=== PATIENT | female | born 1965 | race Caucasian/White ===

== ENCOUNTER 2019-09-16 23:14 | Inpatient (IN) | payer OTHER ==
--- OUTSIDE RECORDS SUMMARY | 2019-09-16 23:19 | XMS REPORT | Continuity of Care Document ---
:1965 Author Organization [facility] [facility] Care Team Providers Name Role Phone [facility] Unavailable Un available Problems Problem Status Onset Classification Date Comments Sourc e Date Reported Nondisplaced 06/11/19 09/13/2017 OPI D bicondylar [address] fracture of right tibia, subsequent encounter for closed fracture with routine healing S82.141A - Active 01/26/20 [facility] DISPLACED [address] BICONDYLAR FRACTURE Effusion, right 09/13/2017 [facility] [place] Medications No Data Provided for This Section Allergies, Adverse Reactions, Alerts No Known Medication Allergies Immunizations No Data Provided for This Section Results No Data Provided for This Section Pathology Reports No Data Provided for This Section Diagnostic Reports Report Value Date Source Knee wo contrast MRI EXAMINATION: MRI of the right knee with out contrast. 06/07/2017 [facility] [place] HISTORY: - closed non displ aced bicondylar fx. of right tibia with routine healing; AGE: 51 years GENDER: Female COMPARISON: CT right knee 01/25/2017 TECHNIQUE: Multiplanar, mult isequence magnetic resonance imaging of the right knee is performed with an extremity coil without contrast. FINDINGS: Menisci: Medial: There is moderate fr ee edge blunting of the body and posterior horn of the medial meniscus Lateral: The anterior horn, body, and posterior horn are intact. Ligaments: The anterior cruc iate ligament and posterior cruciate ligament are intact. The medial collateral ligament and lateral collateral ligament complex are intact. Extensor mechanism: The extensor mechanism is in tact. Muscles: There is normal sig nal intensity and muscle bulk of the musculature at the knee. Cartilage: There is moderate reactive marrow change in the lateral patellofemoral compartment with lateral patellar tilt. Mild osseous reformation the medial tibiofemoral and patellofemoral compartments . The patellofemoral articul ar cartilage demonstrates grade 2/3 chondromalacia with oblique full-thickness 5 x 8 mm chondral fracture in the lateral patellar ridge extending to the patellar apex.. The m edial tibiofemoral articular cartilage demonstrates grade 3 chondromalacia.. The lateral tibiofemoral articular cartilage demonstrates mild chondral surface fraying in the medial aspect of the lateral tibial plateau. Bone: There is stable 3 mm c entral depression of the lateral tibial plateau consistent with sequela from healed lateral tibial plateau fracture previously noted anterior tibial cortex fractures also hea led. Mild intraosseous cyst formation is noted in the medial margin of this lateral tibial plateau fracture at the site of cortical depression. Moderate red marrow reconversion. Soft tissues: There is a small knee joint effusi on. Moderate Juarez's cyst IMPRESSION: 1. Interval healing of later al tibial plateau fracture with stable 3 mm central depression of the lateral tibial plateau. 2. Grade 2/3 chondromalacia of the lateral patellar facet with superimposed oblique full-thickness 8 mm chondral fissure in the lateral patellar ridge and patellar apex. 3. Grade III chondromalacia in the medial tibiofemoral compartment with degenerative free edge blunting of the body and posterior horn. 4. Small knee joint effusion with moderate Juarez 's cyst. Knee wo contrast 01/25/2017 [facility] w/3D CT Study: Right knee wo contrast w/3D CT Clinical Indication: S82.141 A Displaced bicondylar fracture of right tibia, initial encounter for closed fracture, f/u to xrays outside report attached - DLP: 993.10 mGy-cm Comparison: None TECHNIQUE: Multiple axial CT images of the right knee were acquired without the administration of intravenous contrast. Multiplanar and three-dimensional reformatted images were performed. DLP= 993.10 mGy-cm FINDINGS: There is an acute, mildly depressed fracture of the lateral tibial plateau with 3 mm depression at the articular surface. Associated large lipohemarthrosis of the knee is seen. Nondisplaced ve rtically oriented fracture c omponent extends into the anterior cortex of the lateral tibial plateau. Moderate-severe tricompartme ntal osteoarthrosis of the knee is noted with joint space narrowing and marginal osseous spurring. The quadriceps and patellar tendons are grossly intact. The anterior cruciate ligament and posterior cruciate ligament are grossly intact. Mild infrapatellar soft tiss ue swelling is seen. Punctate 2 mm and 3 mm radiopaque densities in the infrapatellar soft tissues are also noted, nonspecific. IMPRESSION: 1. Acute, mildly depressed l ateral tibial plateau fracture, compatible with Schatzker type III fracture. 2. Advanced tricompartmental osteoarthrosis of t he right knee. SL: [id number] Consultation Notes No Data Provided for This Section Discharge Summaries No Data Provided for This Section History and Physicals No Data Provided for This Section Vital Signs No Data Provided for This Section Encounters Location Location Encounter Encounter Reason Attending ADM HI Stat us Source Details Type Number For Provider Date Date Visit [facility] Outpt Diag [id number] [place] 01/25 01/26 [facility] Outpt Diag [id number] [place] 06/07 06/08 [facility] [place] Procedures No Data Provided for This Section Assessment and Plan No Data Provided for This Section Plan of Care No Data Provided for This Section Social History Social History Date Source No data available for this 06/08/2017 [facility] [place] section No data available for this 01/26/[address] [facility] section Family History No Data Provided for This Section Advance Directives No Data Provided for This Section Functional Status No Data Provided for This Section
--- OUTSIDE RECORDS SUMMARY | 2019-09-16 23:19 | XMS REPORT | Clinical Summary ---
:1965 Author Organization [facility] Address [address] [place] [address] Care Team Providers Name Role Phone Tonia Cobb [employer] SLEEV[employer] WORKERKimberlyC Primary Care Provider Allergies No Known Allergies Medications Medication Sig Dispensed Refills Start End Status Date Date carvedilol Take 25 mg by 0 Activ e (COREG) 25 MG mouth 2 (two) tablet times a day. lisinopril Take 1 tablet by 0 Ac tive (PRINIVIL,ZESTRIL mouth daily. ) 10 mg tablet sertraline Take 1 tablet by 0 Ac tive (ZOLOFT) 100 MG mouth daily. tablet atorvastatin Take 1 tablet by 0 Active (LIPITOR) 40 MG mouth daily. tablet MULTIVITAMIN ORAL Take 1 tablet by 0 Active mouth daily. estradiol Take 1 mg by mouth 0 A ctive (ESTRACE) 1 MG daily. tablet AJOVY 225 mg/1.5 INJECT ONE SYRINGE 2 Syringe Active mL SUBCUTANEOUSLY 9 syringeIndication EVERY 28 DAYS s: Intractable chronic migraine without aura and without status migrainosus meloxicam (MOBIC) Take 1 tablet (15 30 tablet 1 /2 Active 15 mg tablet mg total) by mouth 0 021 daily. meloxicam (MOBIC) TAKE 1 TABLET BY 90 tablet 1 11/03 Discontinued 15 mg tablet MOUTH ONCE DAILY 8 019 (Error) meloxicam-irritan Take 1 tablet by 0 01/18 Discontinued t,cntr irr #2 15 mouth daily. 019 mg kit fremanezumab-vfrm Inject 225 mg 1 Syringe 11 Discontinued (AJOVY) 225 under the skin 8 019 (Re order) mg/1.5 mL syringe every 28 days. syringeIndication s: Intractable chronic migraine without aura and without status migrainosus meloxicam (MOBIC) Take 1 tablet (15 30 tablet 1 10/24 0 Discontinued 15 mg tablet mg total) by mouth 9 019 (Reorder) daily. methocarbamol Take 1 tablet (750 30 tablet 0 Discontinued (ROBAXIN) 750 MG mg total) by mouth 9 019 tablet every 8 (eight) hours as needed for muscle spasms for up to 30 doses. meloxicam (MOBIC) TAKE 1 TABLET BY 30 tablet 1 01/03 Discontinued 15 mg tablet MOUTH ONCE DAILY 9 019 (Reorder) meloxicam (MOBIC) TAKE 1 TABLET BY 30 tablet 1 03/20 Discontinued 15 mg tablet MOUTH ONCE DAILY 9 019 (Reorder) enoxaparin Inject 0.4 mL (40 14 Syringe 0 (LOVENOX) 40 mg total) under 9 019 mg/0.4 mL syringe the skin daily for 14 days. promethazine Take 1 tablet (25 20 tablet 0 (PHENERGAN) 25 MG mg total) by mouth 9 019 tablet every 6 (six) hours as needed for nausea or vomiting for up to 30 days. To begin after surgery methocarbamol Take 1 tablet (750 120 tablet 0 (ROBAXIN-750) 750 mg total) by mouth 9 019 MG tablet 4 (four) times a day for 30 days. traMADol (ULTRAM) Take 1 tablet (50 50 tablet 0 03/27 3 50 mg mg total) by mouth 9 019 tabletIndications every 4 (four) : acute pain hours as needed for moderate pain for up to 61 days .Acute Pain. meloxicam (MOBIC) TAKE 1 TABLET BY 90 tablet 1 06/18 15 mg tablet MOUTH ONCE DAILY 9 020 traMADoL (ULTRAM) Take 1 tablet (50 30 tablet 0 08/25 50 mg mg total) by mouth 0 020 tabletIndications every 4 (four) : acute pain hours as needed for moderate pain for up to 10 days .acute pain. cephalexin Take 2 grams 1 hr 4 capsule E xpired (KEFLEX) 500 MG prior to dental 0 020 capsule appointment Hospital, Clinic, or Ordered Dose Route Frequency Start Date End D ate Status Other Facility Administered Medication methylPREDNISolone 40 mg IAtc once 11/22/2018 Discontinued acetate (DEPO-MEDROL) 9 injection 40 mgIndications: Primary osteoarthritis of right knee methylPREDNISolone 40 mg IAtc once 11/22/2018 Discontinued acetate (DEPO-MEDROL) 9 injection 40 mgIndications: Primary osteoarthritis of left knee Active Problems Problem Noted Date Knee osteoarthritis 02/01/2019 S/P total knee arthroplasty 02/01/2019 Essential hypertension, benign 02/01/2019 Hyperlipemia 02/01/2019 History of migraine 02/01/2019 Anxiety 02/01/2019 Primary osteoarthritis of left knee 12/27/2018 Overview: Added automatically from request for jameson okeefe [id number] Osteoarthritis of spine with radiculopathy, cervical r egion 03/30/2018 Intractable chronic migraine without aura and without status migrainosus 03/30/2018 Encounters Date Type Specialty Care Team Description 09/05/2019 Office Visit Orthopedic Julio Patel, Acute pain of left knee (Primary Dx); Surgery Status post lef t knee replacement 09/05/2019 Refill Orthopedic Conchita Teague MA Surgery 09/05/2019 Travel 08/29/2019 Travel 08/01/2019 Office Visit Orthopedic Julio Patel, Status post left knee replacement (Primary Dx); Surgery MD Primary osteoar thritis of left knee; Acute pain of l eft knee 08/01/2019 Travel 07/21/2019 Travel 06/26/2019 Office Visit Orthopedic Julio Patel, Status post left knee Surgery MD replacement (Pr imary Dx) 05/01/2019 Office Visit Orthopedic Darnell, Status post lef t knee Surgery VINAY Clay replacement (Primary Dx) 03/24/2019 Refill Neurology Marixa Callahan MD Intractable chronic migraine withou t aura and without sta tus migrainosus 03/20/2019 Refill Orthopedic Julio Patel, Surgery MD 03/16/2019 Office Visit Orthopedic Julio Patel, Primary ost eoarthritis of left knee (Primary Dx); Surgery MD Status post lef t knee replacement 02/15/2019 Office Visit Orthopedic Darnell, Status post lef t knee Surgery VINAY Clay replacement (Primary Dx) 02/03/2019 Orders Only Orthopedic Gopal Patrick PA 02/01/2019 Surgery General Surgery Julio Patel, Left Tot al Knee Arthroplasty 02/01/2019 Anesthesia Event General Surgery Addison Robin MD Cheema, Ivelisse, RODRÍGUEZ 02/01/2019 - Hospital Encounter General Internal Julio Patel P rimary 02/03/2019 Medicine osteoarthritis of left knee 01/30/2019 Orders Only Orthopedic Gopal Patrick PA 01/18/2019 Pre-Admit Testing Pre-Admission Julio Ptael, Pre-o p testing Appointment Testing (Primary Dx) 01/11/2019 Telephone Orthopedic Shannen Ross MA Surgery 01/03/2019 Refill Orthopedic Gopal Patrick PA 12/29/2018 Orders Only Orthopedic Hugo Hopkins Primary Surgery MAYA osteoarthritis of left knee (Prim vipul Dx) 12/27/2018 Transcribe Orders Orthopedic Julio Patel Primar y Surgery osteoarthritis of left knee (Prim vipul Dx) 12/23/2018 Hospital Encounter Radiology Julio Patel, Prima ry osteoarthritis of left knee 12/20/2018 Office Visit Orthopedic Julio Patel, Primary Surgery osteoarthritis of left knee (Prim vipul Dx) 12/20/2018 Orders Only Orthopedic Julio Patel, Primary Surgery osteoarthritis of left knee (Prim vipul Dx) 11/22/2018 Office Visit Orthopedic Julio Patel, Primary ost eoarthritis of right knee (Primary Dx); Surgery MD Primary osteoar thritis of left knee; Acute pain of l eft knee 11/02/2018 Refill Orthopedic Julio Patel, Surgery MD after 09/15/2018 Family History Medical History Relation Name Comments Diabetes Father Heart disease Father Hypertension Father Stroke Father Migraines Maternal Aunt No Known Problems Mother Relation Name Status Comments Father Maternal Aunt Mother Alive Social History Tobacco Use Types Packs/Day Years Used Date Never Smoker Smokeless Tobacco: Never Used Alcohol Use Drinks/Week oz/Week Comments Not Currently Alcohol Habits Answer Date Recorded How often do you have a drink containing alcohol? Never 03/30/2018 How many drinks containing alcohol do you have on a typical Not asked day when you are drinking? How often do you have six or more drinks on one occasion? No t asked Sex Assigned at Date Recorded Not on file Job Start Date Occupation Industry Not on file Not on file Not on file Travel History Travel Start Travel End No recent travel history available. COVID-19 Exposure Response Date Recorded In the last month, have you been in contact with No / Unsure 09/05/2019 10:31 AM CDT someone who was confirmed or suspected to have Coronavirus / COVID-19? Last Filed Vital Signs Vital Sign Reading Time Taken Comments Blood Pressure 114/63 02/03/2019 11:33 AM CDT Pulse 60 02/03/2019 11:33 AM CDT Temperature 36.9 C (98.4 F) 02/03/2019 11:33 AM CDT Respiratory Rate 18 02/03/2019 11:33 AM CDT Oxygen Saturation 97% 02/03/2019 11:33 AM CDT Inhaled Oxygen Concentration - - Weight 98.9 kg (218 lb) 01/18/2019 8:55 AM CDT Height 165.1 cm (5' 5") 02/01/2019 7:15 AM CDT Body Mass Index 36.28 01/18/2019 8:55 AM CDT Plan of Treatment Date Type Specialty Care Team Description 10/17/2019 [facility] [place] [address] [place], [place] [address] Health Maintenance Due Date Last Done Comments CERVICAL CANCER SCREENING 11/04/1988 BREAST CANCER SCREENING 11/04/2017 COLONOSCOPY SCREENING 11/04/2017 SHINGLES VACCINES (#1) 11/04/2017 INFLUENZA VACCINE 11/25/2019 Implants Implanted 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 Shelf Model / Identifier Expiration Serial / Date Lot Series A Pat Std 31 3 Peg - [id number] IMPLANT Left: [employer] 11/25/2023 [id number] / Implanted: 02/01/2019 at [facility] (Quantity not on file) DEVICES Knee / [id number] Angel Peters Ilok Fem-Lt 67.5 - [id number] IMPLANT Left: [employer] 08/01/2028 [id number] / Implanted: 02/01/2019 at [facility] (Quantity not on file) DEVICES Knee / [id number] Biomet Cc Cruciate Tray 71mm - [id number] IMPLANT Left: [employer] 09/24/2028 [id number] / Implanted: 02/01/2019 at [facility] (Quantity not on file) DEVICES Knee / [id number] E-Poly Mikeguard Cr Tib Brng 71/75 X 10 - [id number] [id number] IMPLANT Left: [employer] 03/21/2021 [id number] / Implanted: 02/01/2019 at [facility] (Quantity not on file) DEVICES Knee / [id number] Total Knee Arthrplsty Signature - [id number] Orthopedic Left: [employer] [id number] / Implanted: 02/01/2019 at [facility] (Quantity not on file) Trauma Knee / Implants [id number] Cement Bone Full Dose Simplex P Radiopaque - [id number] Surgical Bone Left: KELSI 11/23/2020 [id number] / Implanted: 02/01/2019 at [facility] (Quantity not on file) Ce ment Knee ORTHOPEDICS / HIPS-KNEES [id number] Cement Bone Full Dose Simplex P Radiopaque - [id number] Surgical Bone Left: KELSI 01/23/2021 [id number] / Implanted: 02/01/2019 at [facility] (Quantity not on file) Ce ment Knee ORTHOPEDICS / HIPS-KNEES [id number] Procedures Procedure Name Priority Date/Time Associated Diagnosis Comme nts XR KNEE 1 OR 2 VW LEFT Routine 09/05/2019 10:48 Acute pain of left Results for this AM CDT knee procedure are i n the results section. XR KNEE 1 OR 2 VW LEFT Routine 02/15/2019 2:12 Status post le ft knee Results for this PM CDT replacement procedure are i n the results section. HEMOGLOBIN & Routine 02/03/2019 3:54 Results for this HEMATOCRIT AM CDT procedure are i n the results section. ESTIMATED GFR Routine 02/02/2019 6:10 Results fo r this AM CDT procedure are i n the results section. HC COMPLETE BLD COUNT Routine 02/02/2019 6:10 Re sults for this W/AUTO DIFF AM CDT procedure are i n the results section. COMPREHENSIVE Routine 02/02/2019 6:10 Results fo r this METABOLIC PANEL AM CDT procedure ar e in the results section. SURGICAL PATHOLOGY Routine 02/01/2019 12:24 Resul ts for this REQUEST PM CDT procedure are i n the results section. URINALYSIS SCREEN AND Timed 02/01/2019 9:04 Primary Re sults for this MICROSCOPY, WITH AM CDT osteoarthritis of proced ure are in REFLEX TO CULTURE left knee the result s section. URINE CULTURE Timed 02/01/2019 9:04 Results fo r this AM CDT procedure are i n the results section. NE AN PERIPHERAL BLOCK Routine 02/01/2019 8:28 R esults for this PROCEDURE FOR PAIN AM CDT procedure are in the results section. NE AN PERIPHERAL BLOCK Routine 02/01/2019 8:27 R esults for this PROCEDURE FOR PAIN AM CDT procedure are in the results section. ANESTHESIA PERIPHERAL Routine 02/01/2019 8:27 Re sults for this BLOCK AM CDT procedure are i n the results section. POC GLUCOSE Routine 02/01/2019 7:37 Results for this AM CDT procedure are i n the results section. ESTIMATED GFR Routine 01/18/2019 9:26 Results fo r this AM CDT procedure are i n the results section. HEMOGLOBIN A1C Routine 01/18/2019 9:26 Pre-op testing Results for this AM CDT procedure are i n the results section. BASIC METABOLIC PANEL Routine 01/18/2019 9:26 Pre-op testing Results for this AM CDT procedure are i n the results section. HC COMPLETE BLD COUNT Routine 01/18/2019 9:26 Pre-op testing Results for this W/AUTO DIFF AM CDT procedure are i n the results section. ECG PRE/POST OP Routine 01/18/2019 9:24 Pre-op testing Result s for this AM CDT procedure are i n the results section. TYPE AND SCREEN Routine 01/18/2019 9:08 Pre-op testing Result s for this AM CDT procedure are i n the results section. MRI SIGNATURE KNEE Routine 12/23/2018 9:02 Primary Resul ts for this LEFT PM CDT osteoarthritis of procedure are in left knee the results section. XR KNEE 4+ VW LEFT Routine 11/22/2018 10:31 Acute pain of left Results for this AM CDT knee procedure are i n the results section. NE ARTHROCENTESIS Routine 11/22/2018 10:10 Primary Result s for this ASPIR&/INJ MAJOR AM CDT osteoarthritis of proced ure are in JT/BURSA W/O US right knee the results Primary section. osteoarthritis of left knee after 09/15/2018 Results XR Knee 1 Or 2 Vw Left (09/05/2019 10:48 AM CDT)Only the most recent of2 results within the time period is included. Specimen Narrative Performed At This result has an attachment that is no t available. 2 views (AP and lateral of the Left knee(s) show that the prosthesis is HM [facility] in good position with no signs of any problems. No s igns of loosening, infection, or dislocation. Performing Organization Address City/[facility]/Zipcode Phone Number [facility] [address] [place] [address] Hemoglobin & hematocrit (02/03/2019 3:54 AM CDT) Pathologist Sig nature HGB 10.5 (L) 12.0 - 16.0 g/dL [facility] HCT 33.7 (L) 37.0 - 47.0 % [facility] Specimen Blood Performing Organization Address City/State/Zipcode Phone Number [facility] DEPARTMENT OF PATHOLOGY [address] [facility] [address] AND GENOMIC MEDICINE [facility] [address] [facility] X [address] HOSPITAL Estimated GFR (02/02/2019 6:10 AM CDT)Only the most recent of2 resultswithin the time period is included. Estimated GFR >=90 mL/min/1.73 [facility] Comment: m2 [place] Catergory Units Interpretation HOS PITAL G1 >=90 Normal or high G2 60-89 Mildly decreased G3a 45-59 Mildly to moderately decreas ed G3b 30-44 Moderately to severely decre ased G4 15-29 Severely decreased G5 <15 Kidney failure The eGFR was calculated using the Chronic Kidney Disea se Epidemiology Collaboration (CKD-EPI) equation. Interpretation is based on recommendations of the National Kidney Foundation-Kidney Disease Outcomes Remington lity Initiative (NKF-KDOQI) published in 2014. Specimen Plasma specimen Performing Organization Address City/State/Zipcode Phone Number [facility] DEPARTMENT OF PATHOLOGY [id number] [place] [address] [id number] [place] [address] CBC with platelet and differential (02/02/2019 6:10 AM CDT)Only the most recent of2 resultswithin the time period is included. WBC 14.6 (H) 4.5 - 11.0 k/uL [facility] RBC 3.55 (L) 4.20 - 5.50 [facility] m/uL [facility] HGB 10.8 (L) 12.0 - 16.0 [facility] g/dL [facility] HCT 34.3 (L) 37.0 - 47.0 % [facility] MCV 96.6 82.0 - 100.[address] [facility] MCH 30.4 27.0 - 34.[address] [facility] MCHC 31.5 31.0 - 37.0 [facility] g/dL [facility] RDW - SD 46.1 37.0 - 55.[address] [facility] MPV 9.7 6.9 - 11.[address] [facility] Platelet count 266 150 - 400 K/uL [facility] Nucleated RBC 0.00 /[address] [facility] Neutrophils 76.3 (H) 39.0 - 69.0 % [facility] Lymphocytes 14.8 (L) 25.0 - 45.0 % [facility] Monocytes 8.3 0.0 - 10.0 % [facility] Eosinophils 0.0 0.0 - 5.0 % [facility] Basophils 0.1 0.0 - 1.0 % [facility] Immature granulocytes 0.5 0.0 - 1.0 % [facility] Specimen Blood Performing Organization Address City/State/Zipcode Phone Number [facility] DEPARTMENT OF PATHOLOGY [id number] [place] [address] X [address] AND [facility] [address] [facility] X [id number] [place] [address] Comprehensive metabolic panel (02/02/2019 6:10 AM CDT) Pathologist Sig nature Sodium 141 135 - 148 mEq/L [facility] Potassium 4.2 3.5 - 5.0 mEq/L [facility] Chloride 105 98 - 112 mEq/L [facility] CO2 22 (L) 24 - 31 mEq/L [facility] Anion gap 14@ANIO 7 - 15 mEq/L [facility] BUN 9 6 - 20 mg/dL [facility] Creatinine 0.63 0.50 - 0.90 [facility] mg/dL [facility] Glucose 128 (H) 65 - 99 mg/dL [facility] Calcium 9.3 8.3 - 10.2 mg/dL [facility] Protein 6.5 6.3 - 8.3 g/dL [facility] Albumin 3.7 3.5 - 5.0 g/dL [facility] A/G ratio 1.3 0.7 - 3.8 [facility] Alkaline phosphatase 65 35 - 104 U/L [facility] AST 15 10 - 35 U/L [facility] ALT 21 5 - 50 U/L [facility] Total bilirubin 0.8 0.2 - 1.2 mg/dL [facility] Specimen Plasma specimen Performing Organization Address City/State/Zipcode Phone Number [facility] DEPARTMENT OF PATHOLOGY [address] [facility] [place] [address] AND GENOMIC MEDICINE [facility] [id number] [place] [address] X [address] [facility] Surgical pathology request (02/01/2019 12:24 PM CDT) [facility] DEPARTMENT OF PATHOLOGY AND GENOMIC MEDICINE Surgical pathology See link below [facility] DEPARTMENT OF report for PDF Lab PATHOLOGY AND Report GENOMIC MEDICINE Result status This is Final [facility] DEPARTMENT OF Report for PATHOLOGY AND [id number] GENOMIC MEDICINE Specimen Performing Organization Address City/State/Zipcode Phone Number [facility] DEPARTMENT OF PATHOLOGY [address] [facility] [place] [address] AND GENOMIC MEDICINE Urinalysis screen and microscopy, with reflex to culture (02/01/2019 9:04 AM CDT) Specimen site Catheterized [facility] Color, UA Straw [facility] Appearance, UA Clear [facility] Specific gravity, 1.009 1.001 - 1.030 [facility] pH, UA 6.0 5.0 - 9.0 [facility] Protein, UA Negative Negative [facility] Glucose, UA Negative Negative [facility] Ketones, UA Negative Negative [facility] Bilirubin, UA Negative Negative [facility] Blood, UA Small (A) Negative [facility] Nitrite, UA Negative Negative [facility] Urobilinogen, UA <2.0 <2.0 E.U./dL [facility] Leukocyte esterase, Negative Negative [facility] WBC, UA <1 0 - 4 /HPF [facility] RBC, UA 1 0 - 5 /HPF [facility] Bacteria, UA Few None seen [facility] Yeast, UA None seen [facility] Yeast with None seen [facility] pseudohyphae, UA [facility] Specimen Urine - Urine, catheter Performing Organization Address City/[facility]ode Phone Number [facility] DEPARTMENT OF PATHOLOGY [address] [place] [address] Urine culture (02/01/2019 9:04 AM CDT) Pathologist Sig nature Urine culture SEE COMMENTComment: [facility] Bacteriuria screen [facility] negative. Specimen Performing Organization Address City/[facility]/Zipcode Phone Number [facility] DEPARTMENT OF PATHOLOGY [address] [place] [address] AND GENOMIC MEDICINE [facility] [id number] [place] [id number] [place] [address] Peripheral Block (02/01/2019 8:28 AM CDT) Narrative Performed At Addison Robin MD 02/01/2019 8:28 AM Peripheral Block Performed by: Addison Robin MD Authorized by: Addison Robin MD Patient Location: Pre-op Reason for Block: at surgeon's request, post-op pain management Staff: Anesthesiologist: Addison Robin MD Performed by: Anesthesiologist Preprocedure: patient identified, IV allyson cked, site and side verified, risks and benefits discussed, procedure verified, surgical consent complete, patient position confirmed, mo nitors and equipment checked, pre-op evaluation complete and site julio ed Peripheral Nerve Block: Patient Position: Left lateral decu bitus Prep: DuraPrep Block Type: Femoral Laterality: Left Injection Technique: Single injection Procedures: ultrasound guided Ultrasound documentation: Printed/plac ed in chart Local Infiltration (See MAR for details) : Ropivacaine Loss of Twitch: 0.5 mA Needle: Needle Type: Pajunk Needle Gauge: 19 G Needle Length: 10 cm Catheter at Skin Depth: 6 cm Assessment: Injection Assessment: Visualized needle/local ane sthetic surrounding nerve, visualized pertinent vascular str uctures and nerves, needle tip visualized at all times during injection of medication, intermittent aspiration during local anesthetic admin istration and no symptoms of intraneural/intravenous injection Heart Rate Change: No Slow Fractionated Injection: Yes Block outcome: No apparent complica tions, patient comfortable and patient tolerated procedure well Notes: 10cc 0.5N LEFT ANTERIOR FEMORAL C UTANEOUS BLOCK Time Out done immediately before procedure Peripheral Block (02/01/2019 8:27 AM CDT) Narrative Performed At Addison Robin MD 02/01/2019 8:28 AM Peripheral Block Performed by: Addison Robin MD Authorized by: Addison Robin MD Patient Location: Pre-op Reason for Block: at surgeon's request, post-op pain management Staff: Anesthesiologist: Addison Robin MD Performed by: Anesthesiologist Preprocedure: patient identified, IV allyson cked, site and side verified, risks and benefits discussed, procedure verified, surgical consent complete, patient position confirmed, mo nitors and equipment checked, pre-op evaluation complete and site julio ed Peripheral Nerve Block: Patient Position: Right lateral dec ubitus Prep: DuraPrep Block Type: IPACK Laterality: Left Injection Technique: Single injection Procedures: ultrasound guided Ultrasound documentation: Printed/plac ed in chart Local Infiltration (See MAR for details) : Ropivacaine Loss of Twitch: 0.5 mA Needle: Needle Type: Pajunk Needle Gauge: 19 G Needle Length: 10 cm Catheter at Skin Depth: 6 cm Assessment: Injection Assessment: Visualized needle/local ane sthetic surrounding nerve, visualized pertinent vascular str uctures and nerves, needle tip visualized at all times during injection of medication, intermittent aspiration during local anesthetic admin istration and no symptoms of intraneural/intravenous injection Heart Rate Change: No Slow Fractionated Injection: Yes Block outcome: No apparent complica tions, patient comfortable and patient tolerated procedure well Notes: 20cc 0.5N Time Out done immediately before procedure Peripheral Block (02/01/2019 8:27 AM CDT) Narrative Performed At Addison Robin MD 02/01/2019 8:27 AM Peripheral Block Performed by: Addison Robin MD Authorized by: Addison Robin MD Patient Location: Pre-op Reason for Block: at surgeon's request, post-op pain management Staff: Anesthesiologist: Addison Robin MD Performed by: Anesthesiologist Preprocedure: patient identified, IV allyson cked, site and side verified, risks and benefits discussed, procedure verified, surgical consent complete, patient position confirmed, mo nitors and equipment checked, pre-op evaluation complete and site julio ed Peripheral Nerve Block: Patient Position: Supine Prep: DuraPrep Block Type: Adductor canal (Left Femor al Adductor Canal Catheter) Laterality: Left Injection Technique: Catheter insertio n Procedures: ultrasound guided Ultrasound documentation: Printed/plac ed in chart Local Infiltration (See MAR for details) : Ropivacaine Needle: Needle Type: Pajunk Needle Gauge: 19 G Needle Length: 10 cm Catheter at Skin Depth: 6 cm Assessment: Injection Assessment: Visualized needle/local ane sthetic surrounding nerve, visualized pertinent vascular str uctures and nerves, needle tip visualized at all times during injection of medication, intermittent aspiration during local anesthetic admin istration and no symptoms of intraneural/intravenous injection Heart Rate Change: No Slow Fractionated Injection: Yes Block outcome: No apparent complica tions, patient comfortable and patient tolerated procedure well Notes: 20cc 0.5N and 4mg decadron Time Out done immediately before procedure POC glucose (02/01/2019 7:37 AM CDT) Pathologist Sig nature POC glucose 92 65 - 99 mg/dL AMBREEN HERNANDEZ Comment: [facility] Meter ID: [id number] Cruise Counselor: Felix Sanchez Specimen Performing Organization Address City/State/Zipcode Phone Number [facility] DEPARTMENT OF PATHOLOGY [id number] [place] [phone] [id number] [place] [address] Hemoglobin A1c (01/18/2019 9:26 AM CDT) Hemoglobin A1C 5.5 4.0 - 5.6 % [facility] Comment: [place] HbA1c cutoffs for diagnosing diabetes: HO SPITAL 4.0% - 5.6% = normal 5.7% - 6.4% = increased risk for diabetes (prediabetes ) >=6.5% = diabetes Goals for glycemic control (ADA 2016) < 7.0% Target for non adults with diabetes. More or less stringent targets may be appropriate for individual patients. <7.5% Target for Children and adolescents with type 1 diabetes. Specimen Blood Performing Organization Address City/[facility]/Zipcode Phone Number [facility] DEPARTMENT OF PATHOLOGY [address] [place] [address] [phone] Basic metabolic panel (01/18/2019 9:26 AM CDT) Pathologist Sig nature Sodium 141 135 - 148 mEq/L [facility] Potassium 4.4 3.5 - 5.0 mEq/L [facility] Chloride 104 98 - 112 mEq/L [facility] CO2 27 24 - 31 mEq/L [facility] Anion gap 10@ANIO 7 - 15 mEq/L [facility] BUN 13 6 - 20 mg/dL [facility] Creatinine 0.75 0.50 - 0.90 mg/dL [facility] Glucose 98 65 - 99 mg/dL [facility] Calcium 10.0 8.3 - 10.2 mg/dL [facility] Specimen Plasma specimen Performing Organization Address City/State/Zipcode Phone Number [facility] DEPARTMENT OF PATHOLOGY [address] [place] [address] [phone] ECG Pre/Post Op (01/18/2019 9:24 AM CDT) Pathologist Sig nature Ventricular rate 61 [facility] Atrial rate 61 [facility] NE interval 164 [facility] QRSD interval 88 [facility] QT interval 406 [facility] QTC interval 408 [facility] P axis 1 20 [facility] QRS axis 1 6 [facility] T wave axis 24 [facility] EKG impression Normal sinus [facility] rhythm-Minimal voltage criteria for LVH, may be normal variant-Cannot rule out Anterior infarct , age undetermined-Abnormal ECG-No previous ECGs available-Electronicall y Signed By Neil GOMES, Htut ([id number]) on 01/19/2019 10:13:18 AM Specimen Narrative Performed At This result has an attachment that is no t available. Performing Organization Address City/State/Zipcode Phone Number [facility] MUSE [address] [place] [address] Type and screen (01/18/2019 9:08 AM CDT) Pathologist Sig nature ABO grouping A [facility] Rh type POS [facility] Antibody screen (gel) NEG [facility] Specimen Blood Performing Organization Address City/State/Zipcode Phone Number [facility] DEPARTMENT OF PATHOLOGY [address] [facility] [address] AND GENOMIC MEDICINE [facility] [address] [facility] [address] HOSPITAL MRI Signature Knee Left (12/23/2018 9:02 PM CDT) Specimen Narrative Performed At This result has an attachment that is no t available. EXAMINATION: MRI SIGNATURE KNEE LEFT [facility] CLINICAL HISTORY: M17.12 Unilateral prim vipul osteoarthritis left knee, osteoarthritis of the left knee COMPARISON: Radiographs of left knee performed October TECHNIQUE: Multiplanar multisequence MR imaging of the left knee was performed utilizing an extremity coil. No contrast was administered. This exam was completed according to the signature protocol. IMPRESSION: 1. Moderate patellofemoral compartment p redominant tricompartmental left knee osteoarthritis with degenerative type tearing of both the medial and lateral menisci and multifocal cartilage loss worst in the patellofemoral compartment. There is no knee joint effusion. Suspected small shipman's cyst. 2. Limited sequences of the left hip and ankle were obtained according to the signature protocol for prosthesis planning. There is no fracture or other osseous abnormality of the left hip or the left an kle. 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 Colonic divert iculosis without evidence of diverticulitis is noted. [facility]-[id number] Procedure Note Hm Interface, Radiology Results Incoming - 12/24/2018 1:00 PM CDT EXAMINATION: MRI SIGNATURE KNEE LEFT CLINICAL HISTORY: M17.12 Unilateral prim vipul osteoarthritis left knee, osteoarthritis of the left knee COMPARISON: Radiographs of left knee per formed November 22, 2018 TECHNIQUE: Multiplanar multisequence MR imaging of the left knee was performed utilizing an extremity coil. No contrast was administered. This exam was completed according to the signature protocol. IMPRESSION: 1. Moderate patellofemoral compartment p redominant tricompartmental left knee osteoarthritis with degenerative type tearing of both the medial and lateral menisci and multifocal cartilage loss worst in the patellofemoral compartment. There is no knee joint effusion. Suspected small shipman's cyst. 2. Limited sequences of the left hip and ankle were obtained according to the signature protocol for prosthesis planning. There is no fracture or other osseous abnormality of the left hip or the left ankle. 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 Colonic diverti culosis without evidence of diverticulitis is noted. [facility]-[id number] Performing Organization Address [facility] Phone Number [facility] [address] [place] [address] XR Knee 4+ Vw Left (11/22/2018 10:31 AM CDT) Specimen Narrative Performed At This result has an attachment that is no t available. 4 views (AP, PA, Merchants,lateral) of the Left knee reveal no evidence [facility] of fracture, dislocation or any acute osseous abnormalities. There is advanced tricompartmental arthritic changes seen. Performing Organization Address [facility] Phone Number [facility] [address] [place] [address] Large Joint Arthrocentesis: knee, L knee, R knee (11/22/2018 10:10 AM CDT) Narrative Performed At Julio Patel MD 11/22/2018 10:4 7 AM Large Joint Arthrocentesis: knee, L knee , R knee Consent given by: patient Timeout: Immediately prior to procedure a time out was called to verify the correct patient, procedure, equipmen t, senior safety support manager and site/side marked as required Supporting Documentation Indications: pain and joint swelling Procedure Details Preparation: Patient was prepped and ped in the usual sterile fashion Location: knee - L knee and R knee after 09/15/2018 Advance Directives For more information, please contact: [phone] Type Date 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
--- OUTSIDE RECORDS SUMMARY | 2019-09-16 23:21 | XMS REPORT ---
:1965 Author Organization [facility] t Address [address] [place]. [address] [place] [id number] Care Team Providers Name Role Phone Tonia Juarez Primary Care Physician Deysi Patel MD Attending Clinician Ho TREJO Attending Clinician Unavailable Jose Juan Dennis Attending Clinician London GOMES Attending Clinician Christian Robin MD Attending Clinician Eladia ARREGUIN Attending Clinician Cody TREJO Attending Clinician Unavailable Sandeep TREJO Attending Clinician Unavailable Yaniv Mcknight Attending Clinician ANGELA Admitting Clinician Unavailable Payers Payer Name Policy Type Policy Number Effective Date Expiration Date Oseas mcmanus AETNAAETNA xxxxxxxxxx 2013 [place] HMO,POS,EPO, 00:00:00 [employer]ism MC/ECxxxxxxxxxx /04/2013- [place] Problems Condition Condition Condition Status Onset Resolution Last Treating Co mments Source Name Details Category Date Date Treatment Clinician Date Knee Knee Disease Active 2018-04 [place] osteoarthr osteoarthr 0-09 [facility] itis itis 00:00: st 00 S/P total S/P total Disease Active 2018-04 Carla ston knee knee 0-09 Methodi arthroplas arthroplas 00:00: st ty ty 00 Essential Essential Disease Active 2018-04 Carla ston hypertensi hypertensi 0-09 [facility] on, benign on, benign 00:00: st 00 Hyperlipem Hyperlipem Disease Active 2018-04 [place] ia ia 0-09 Methodi 00:00: st 00 History of History of Disease Active 2018-04 [place] migraine migraine 0-09 Method i 00:00: st 00 Anxiety Anxiety Disease Active 2018-04 [place] 0-09 Methodi 00:00: st 00 Primary Primary Disease Active Overview: [place] osteoarthr osteoarthr 12-27 Added Me [facility] itis of itis of 00:00: automatic st left knee left knee 00 ally from request for surgery [id number] Osteoarthr Osteoarthr Disease Active 2017-04 [place] itis of itis of 2-05 [facility] spine with spine with 00:00: st radiculopa radiculopa 00 thy, thy, cervical cervical region region Intractabl Intractabl Disease Active 2017-04 H [place] e chronic e chronic 205 Meth ekta migraine migraine 00:00: st without without 00 aura and aura and without without status status migrainosu migrainosu s s Fibromyalg Fibromyalg Problem Active M [place] ia ia 9-13 da 00:00: Medical 00 Group Uterine Uterine Problem Active [place] leiomyoma Leiomyoma 11-22 da 00:00: Medical 00 Group Dysmenorrh Dysmenorrh Problem Active [facility] [place] ea ea 11-22 da 00:00: Medical 00 Group Female Female Problem Active [place] stress Stress 10-21 da incontinen Incontinen 00:00: Me dical ce ce 00 Group Menometror Menometror Problem Active M [place] rhagia rhagia 10-21 da 00:00: Medical 00 Group Gynecologi Gynecologi Problem Active [place] c c 10-21 da examinatio Examinatio 00:00: Me dical n n 00 Group Screening Screening Problem Active [place] for for 6- da malignant Malignant 00:00: Medi kalia neoplasm Neoplasm 00 Group of breast of Breast S82.141A - Diagnosis Active 2016-042017-01-25 MH OPID DISPLACED 0-02 15:36:00 [facility] BICONDYLAR S82.141A 00:01: st FRACTURE - 00 DISPLACED BICONDYLAR FRACTURE Active 01/25/2017 [facility] [place] Effusion, Problem 2017-09-13 [facility] right knee 14:31:49 [place] Effusion, right knee 09/13/2017 MH OP[facility] [place] Nondisplac Problem 2018-2017-09-13 2017-09-13 OPID ed 2-16 14:31:49 14:31:49 [place] bicondylar 05:20: Land fracture Nondisplac 19 of right ed tibia, bicondylar subsequent fracture encounter of right for closed tibia, fracture subsequent with encounter routine for closed healing fracture with routine healing 06/11/2017 09/13/2017 OPID [place] Allergies, Adverse Reactions, Alerts This patient has no known allergies or adverse reactions. Family History Family Member Diagnosis Comments Start Date Stop Date Source Natural father Diabetes [facility] thodist Natural father Heart disease [place] [facility] Natural father Hypertension [place] [facility] Maternal aunt [facility] Natural mother No Known Problems Carla stokt Mormonism Social History Social Habit Start Date Stop Date Quantity Comments Source History [facility] Meth odist Alcohol Std Drinks History [facility] Meth odist Alcohol Binge Sex Assigned At [facility] ethodist Exposure to Not sure [place] Metho dist SARS-CoV-2 (event) Alcohol intake 2019-09-05 2019-09-05 Ex-drinker [facility] thodist 00:00:00 00:00:00 (finding) History SDOH 2018-03-30 2018-03-30 1 [place] Meth odist Alcohol Frequency 00:00:00 00:00:00 Social History 2017-01-26 2017-01-26 [facility] 04:59:00 04:59:00 [facility] Smoking Status Start Date Stop Date Source Never smoker [place] Methodis Medications Ordered Filled Start Stop Current Ordering Indication Dosage Frequency Signature Comments Components Source Medication Medication Date Date Medication? Clinician (SIG) Name Name cephalexin 2019- No Take 2 [place] (KEFLEX) 5-14 05-14 grams 1 hr Meth ekta 500 MG 00:00: 23:[address] capsule 00 :00 dental appointmen t traMADoL 2019- No acute pain 50mg Q4H Take 1 [place] (ULTRAM) 50 5-12 05-22 tablet (50 M ethodi mg tablet 00:00: 23:59 mg total) st 00 :00 by mouth every 4 (four) hours as needed for moderate pain for up to 10 days .acute pain. meloxicam 2020- Yes 15mg QD Take 1 [place] (MOBIC) 15 3- 03-02 tablet (15 Me thodi mg tablet 00:00: 23:59 mg total) st 00 :00 by mouth daily. AJOVY 225 2018-04 Yes Intractable INJECT ONE [place] mg/1.5 mL 2-02 chronic SYRINGE Meth ekta syringe 00:00: migraine SUBCUTANEO st 00 without USLY EVERY aura and 28 DAYS without status migrainosus meloxicam 2018-04- No TAKE 1 [place] (MOBIC) 15 05-20-23 TABLET BY Met hodi mg tablet 00:00: 23:59 MOUTH ONCE s t 00 :00 DAILY traMADol 2018-04- No acute pain 50mg Q4H Take 1 [place] (ULTRAM) 50 0-23 -23 tablet (50 M ethodi mg tablet 00:00: 23:59 mg total) st 00 :00 by mouth every 4 (four) hours as needed for moderate pain for up to 61 days .Acute Pain. carvedilol 2018-04 Yes 25mg Q.5D Take 25 mg [place] (COREG) 25 0-11 by mouth 2 Met hodi MG tablet 16:57: (two) st 46 times a day. lisinopril 2018-04 Yes 1{tbl} QD Take 1 Carla ston (PRINIVIL,Z 0-11 tablet by Met hodi ESTRIL) 10 16:57: mouth st mg tablet 46 daily. sertraline 2018-04 Yes 1{tbl} QD Take 1 Carla ston (ZOLOFT) 0-11 tablet by Method i 100 MG 16:57: mouth st tablet 46 daily. atorvastati 2018-04 Yes 1{tbl} QD Take 1 [place] (LIPITOR) 0-11 tablet by Met hodi 40 MG 16:57: mouth st tablet 46 daily. MULTIVITAMI 2018-04 Yes 1{tbl} QD Take 1 [place] N ORAL 0-11 tablet by Methodi 16:57: mouth st 46 daily. estradiol 2018-04 Yes 1mg QD Take 1 mg Carla ston (ESTRACE) 1 0-11 by mouth Meth ekta MG tablet 16:57: daily. st 46 methocarbam 2018-04- No 750mg Q.25D Take 1 [place] ol 0-11 11-10 tablet Methodi (ROBAXIN-75 00:00: 23:59 ([address] 0) 750 MG 00 :00 total) by tablet mouth 4 (four) times a day for 30 days. promethazin 2018-04- No 25mg Q6H Take 1 Carla ston e 0-07 11-06 tablet (25 Methodi (PHENERGAN) 00:00: 23:59 mg total) st 25 MG 00 :00 by mouth tablet every 6 (six) hours as needed for nausea or vomiting for up to 30 days. To begin after surgery enoxaparin 2018-04- No 40mg Q24H Inject 0.4 [place] (LOVENOX) 0-07 10-21 mL (40 mg Meth ekta 40 mg/0.4 00:00: 23:59 total) st mL syringe 00 :00 under the skin daily for 14 days. meloxicam-i 2018- No 1{tbl} QD Take 1 H [place] rritant,cnt 01-18 tablet by Me quirino lozano irr #2 15 08:57: 00:[address] mg kit 24 :00 daily. meloxicam 2018- No TAKE 1 [place] (MOBIC) 15 9-03-20 TABLET BY Met hodi mg tablet 00:00: 00:00 MOUTH ONCE s t 00 :00 DAILY methylPREDN 2018- No Primary 40mg [place] ISolone 11-22 osteoarthri [facility] [place] acetate 11:00: 08:[address] (DEPO-MEDRO 00 :31 right knee L) injection 40 mg methylPREDN 2018- No Primary 40mg [place] ISolone 11-22 09 osteoarthri Meth ek[facility] acetate 11:00: 08:[address] (DEPO-MEDRO 00 :35 knee L) injection 40 mg meloxicam 2018- No TAKE 1 [place] (MOBIC) 15 7 09- TABLET BY Met hodi mg tablet 00:00: 00:00 MOUTH ONCE s t 00 :00 DAILY methocarbam 2018- No 750mg Q8H Take 1 Fredis rashid ol 07-12- tablet Methodi (ROBAXIN) 00:00: 00:00 ([address] 750 MG 00 :00 total) by tablet mouth every 8 (eight) hours as needed for muscle spasms for up to 30 doses. meloxicam 2018- No 15mg QD Take 1 [place] (MOBIC) 15 07-12 07-10 tablet (15 Me thodi mg tablet 00:00: 00:00 mg total) st 00 :00 by mouth daily. fremanezuma 2017-04- No Intractable 225mg Q28D Inject 225 [facility] 05-31 11-29 chronic mg under Metho di (AJOVY) 225 00:00: 00:[address] mg/1.5 mL 00 :00 without every 28 syringe aura and days. syringe without status migrainosus meloxicam 2017-04- No TAKE 1 [place] (MOBIC) 15 0-15 07-11 TABLET BY Met hodi mg tablet 00:00: 00:00 MOUTH ONCE s t 00 :00 DAILY acetaminoph acetaminoph No acetaminop [place] en 300 en 300 hen 300 da mg-codeine mg-codeine mg-codeine Medical 30 mg 30 mg 30 mg Group tablet 1-2 tablet 1-2 tablet 1-2 tabs p.o. q tabs p.o. q tabs p.o. 6 hours PRN 6 hours PRN q 6 hours pain pain PRN pain acyclovir acyclovir No 1 Q8H acyclovir [place] 400 mg 400 mg 400 mg da tablet Take tablet Take tablet Medical 1 tablet 1 tablet Take 1 Group every 8 every 8 tablet hours by hours by every 8 oral route oral route hours by for 5 days. for 5 days. oral route for 5 days. Ajovy 225 Ajovy 225 No Ajovy 225 [place] mg/1.5 mL mg/1.5 mL mg/1.5 mL da subcutaneou subcutaneou subcutaneo Medical s syringe s syringe us syringe Group atorvastati atorvastati No atorvastat [place] n 40 mg n 40 mg in 40 mg da tablet tablet tablet Medical Group bupivacaine bupivacaine No 20mL bupivacain [place] 0.5 % (5 0.5 % (5 e 0.5 % (5 d a mg/mL) mg/mL) mg/mL) Medical injection injection injection Group solution solution solution Take 20 mL Take 20 mL Take 20 mL by by by injection injection injection route. [facility]# route. [facility]# route. [id number] [facility]# 2 2 [id number]- [id number] carvedilol carvedilol No carvedilol [place] 25 mg 25 mg 25 mg da tablet tablet tablet Medical Group ciprofloxac ciprofloxac No ciprofloxa [place] in 500 mg in 500 mg toño 500 mg da tablet Take tablet Take tablet Medical 1 tablet 1 tablet Take 1 Group every 12 every 12 tablet hours by hours by every 12 oral route oral route hours by for 7 days. for 7 days. oral route for 7 days. diazepam 10 diazepam 10 No diazepam [place] mg tablet mg tablet 10 mg da tablet Medical Group estradiol 1 estradiol 1 No estradiol [place] mg tablet mg tablet 1 mg da Take 1 Take 1 tablet Medical tablet tablet Take 1 Group every day every day tablet by oral by oral every day route. route. by oral route. Fluarix Fluarix No Fluarix [place] Quad Quad Quad da [id number] Medical (PF) 60 mcg (PF) 60 mcg (PF) 60 Group (15 mcg x (15 mcg x mcg (15 4)/0.5 mL 4)/0.5 mL mcg x IM syringe IM syringe 4)/0.5 mL IM syringe ibuprofen ibuprofen No ibuprofen [place] 800 mg 800 mg 800 mg da tablet Take tablet Take tablet Medical 1 tablet 1 tablet Take 1 Group every 6 every 6 tablet hours by hours by every 6 oral route oral route hours by as needed. as needed. oral route as needed. lisinopril lisinopril No lisinopril [place] 10 mg 10 mg 10 mg da tablet tablet tablet Medical Group meloxicam meloxicam No meloxicam [place] 15 mg 15 mg 15 mg da tablet tablet tablet Medical Group methocarbam methocarbam No methocarba [place] ol 750 mg ol 750 mg mol 750 mg da tablet tablet tablet Medical Group nitrofurant nitrofurant No nitrofuran [place] oin oin toin da monohydrate monohydrate monohydrat Medical /macrocryst /macrocryst e/macrocry Group als 100 mg als 100 mg stals 100 capsule capsule mg capsule sertraline sertraline No sertraline [place] 100 mg 100 mg 100 mg da tablet tablet tablet Medical Group sertraline sertraline No sertraline [place] 50 mg 50 mg 50 mg da tablet tablet tablet Medical Group Vital Signs Vital Name Observation Time Observation Value Comments Source BP Diastolic 2018-08-23 00:00:00 79 mm[Hg] [facility] Height 2018-08-23 00:00:00 65 [facility] BMI (Body Mass 2018-08-23 00:00:00 36.4 kg/m2 [facility] Medical Index) Group BP Systolic 2018-08-23 00:00:00 134 mm[Hg] [facility] Body Weight 2018-08-23 00:00:00 219 [lb_av] [facility] Systolic blood 2019-02-03 11:33:28 114 mm[Hg] Kaushikto n [facility] pressure Diastolic blood 2019-02-03 11:33:28 63 mm[Hg] Ariel on Mormonism pressure Heart rate 2019-02-03 11:33:28 60 /min Reddy Barrera Body temperature 2019-02-03 11:33:28 36.89 Susan Kaushik ton [facility]ism Respiratory rate 2019-02-03 11:33:28 18 /min [place] [facility] Oxygen saturation in 2019-02-03 11:33:28 97 /min Reddy Barrera Arterial blood by Pulse oximetry Body height 2019-02-01 07:15:00 165.1 cm Reddy Barrera Body weight 2019-01-18 08:55:00 98.884 kg Reddy Barrera BMI 2019-01-18 08:55:00 36.28 kg/m2 Reddy Barrera Procedures Procedure Date / Time Performing Clinician Source Performed XR KNEE 1 OR 2 VW LEFT 2019-09-05 10:48:01 Sherie Patel on [facility]ism XR KNEE 1 OR 2 VW LEFT 2019-02-15 14:12:36 Griffin Patrick HEMOGLOBIN & HEMATOCRIT 2019-02-03 03:54:00 Griffin Patrick COMPREHENSIVE METABOLIC 2019-02-02 06:10:00 Kait Ram [facility]ism PANEL HC COMPLETE BLD COUNT 2019-02-02 06:10:00 Kait Ram [facility]ism W/AUTO DIFF ESTIMATED GFR 2019-02-02 06:10:00 Griffin Patrick SURGICAL PATHOLOGY 2019-02-01 12:24:00 Sherie Patel ethodist REQUEST URINE CULTURE 2019-02-01 09:04:00 Sherie Patel Meth odist URINALYSIS SCREEN AND 2019-02-01 09:04:00 Sherie Patel MICROSCOPY, WITH REFLEX TO CULTURE [place] AN PERIPHERAL BLOCK 2019-02-01 08:28:14 Addison Robin PROCEDURE FOR PAIN OK AN PERIPHERAL BLOCK 2019-02-01 08:27:45 Addison Robin PROCEDURE FOR PAIN ANESTHESIA PERIPHERAL 2019-02-01 08:27:18 Addison Robin [place] [facility] BLOCK POC GLUCOSE 2019-02-01 07:37:00 Sherie Patel odquinn HC COMPLETE BLD COUNT 2019-01-18 09:26:00 Adela Montilla on [facility]ism W/AUTO DIFF BASIC METABOLIC PANEL 2019-01-18 09:26:00 Adela Montilla on [facility]ism HEMOGLOBIN A1C 2019-01-18 09:26:00 Adela Montilla Met hodist ESTIMATED GFR 2019-01-18 09:26:00 Adela Montilla Met hodist ECG PRE/POST OP 2019-01-18 09:24:38 Adela Montilla Met hodist TYPE AND SCREEN 2019-01-18 09:08:00 Adela Montilla Met hodist MRI SIGNATURE KNEE LEFT 2018-12-23 21:02:01 Sherie Patel XR KNEE 4+ VW LEFT 2018-11-22 10:31:58 Sherie Patel ethodist OK ARTHROCENTESIS 2018-11-22 10:10:00 Sherie Patel Me thodist ASPIR&/INJ MAJOR JT/BURSA W/O US Laparoscopic Bilateral 2017-12-08 00:00:00 [place] [facility] Salpingo-oophorectomy Group Laparoscopic Total 2017-12-08 00:00:00 [facility] Hysterectomy [facility] Needle Suspension [place] [facility] kalia Procedure of Bladder Neck Group Plan of Care Planned Activity Planned Date Details Comments Source Future Scheduled 2019-11-25 INFLUENZA VACCINE [place] [facility] Test 00:00:00 [code = INFLUENZA VACCINE] Diagnostic Test 2018-08-23 urinalysis, dipstick [facility] Pending 00:00:00 [code = urinalysis, Group dipstick] Diagnostic Test 2018-08-23 HSV (1+2) DNA, qual, [facility] Pending 00:00:00 PCR, unspecified Group specimen [code = HSV (1+2) DNA, qual, PCR, unspecified specimen] Future Scheduled 2017-11-04 BREAST CANCER [facility] thodist Test 00:00:00 SCREENING [code = BREAST CANCER SCREENING] Future Scheduled 2017-11-04 COLONOSCOPY SCREENING [place] [facility] Test 00:00:00 [code = COLONOSCOPY SCREENING] Future Scheduled 2017-11-04 SHINGLES VACCINES [place] [facility] Test 00:00:00 (#1) [code = SHINGLES VACCINES (#1)] Future Scheduled 1988-11-04 Screening for [facility] thodist Test 00:00:00 malignant neoplasm of cervix (procedure) [code = 077320473] Encounters Start End Encounter Admission Attending Care Care Encounter Source Date/Time Date/Time Type Type Clinicians Facility Department ID 2019-09-05 2019-09-05 Outpatient MAFFET, [facility] [id number] [place] 00:00:00 00:00:00 SHERIE [address] 2019-09-05 2019-09-05 Outpatient MAFFET, [facility] [id number] [place] 00:00:00 00:00:00 SHERIE [address] 2019-08-01 2019-08-01 Outpatient MAFFET, [facility] [id number] [place] 00:00:00 00:00:00 SHERIE [address] 2019-06-26 2019-06-[address] [facility] [id number] [place] 00:00:00 00:00:00 SHERIE [address] 2019-02-01 2019-02-03 Inpatient ANGELA, [facility] [id number] [place] 00:00:00 00:00:00 SHERIE 416 Method i 2018-08-23 2018-08-23 [place] - [id number] M [place] 00:00:00 00:00:00 Discovery valerie Lopez MD: [address] [facility] [place], [place] [address], [place] [address] , Ph. [phone] 2017-06-07 2017-06-08 [facility] [id number] [facility] OPID 21:44:00 05:59:00 Services Outpatient 01 [facility] Imaging [facility] [place] 2017-06-07 2017-06-07 Outpatient Roxanna [id number] 15:44:00 23:59:00 Gómez Purvis [id number] 5.29 2017-01-25 2017-01-26 Outpt Diag [facility] [id number] [facility] OPID 20:28:00 04:59:00 Services Outpatient 00 So uthwe Imaging [facility] 2017-01-25 2017-01-25 Outpatient Bolivar Mcknight.[id number]. [id number] 15:28:00 23:59:00 Gómez Purvis [id number] 5.36 Results Test Description Test Time Test Comments Results Result [facility] e Comments - CT LOWER EXTRM 2019-09-09 Patient Name: W/O C LT 14:25:00 SAMMIE METZGER Unit No: [id number] EXAMS: CPT CODE: [id number] CT LOWER EXTR W/[place] [address] TECHNIQUE: Volumetric CT data of the left knee was obtained without use of intravenous contrast. Images were then viewed in the axial, coronal and sagittal planes. CT radiation dose optimization is achieved for this examination by the use of a CT protocol in accordance with ACR practice standards and adherence to equine pharmacology technician's recommendations. INDICATION: LEFT KNEE PAIN COMPARISON: None. FINDINGS: Postoperative changes of left total knee arthroplasty demonstrated. There is minimal irregularity of the medial tibial plateau at the prosthesis interface, which is likely chronic. No definite periprosthetic fracture is visualized. Small joint effusion/synovitis is present. Soft tissues are otherwise unremarkable. IMPRESSION: Left total knee arthroplasty without definite periprosthetic fracture. Irregularity of the medial tibial plateau is favored to be chronic. at 1426 Reported and signed by: Diego Cavazos M.D. CC: Miguel Smith MD Technologist: Vincenzo Boles,RT(R) CTDI: DLP: Trnscrpt: 09/09/2019 (8148) [place] [facility] NAME: SAMMIE METZGER [address] [place] [address] PHYS: Miguel Milton MD : 1965 AGE: 53 SEX: F [place] [address] LOC: Y.RAD PHONE #: [phone] EXAM DATE: 09/08/2019 STATUS: DEP CLI FAX #: [phone] RAD #: D/C DT PAGE 1 Signed Report Patient Name: SAMMIE METZGER Unit No: [id number] EXAMS: CPT CODE: [id number] CT LOWER EXTRM W/[place] [address] <Continued> Orig Print D/T: S: 09/09/2019 (2304) [facility] NAME: SAMMIE METZGER [address] [place] [address] PHYS: Miguel Milton MD : 1965 AGE: 53 SEX: F [place] [address] LOC: Y.RAD PHONE #: [phone] EXAM DATE: 09/08/2019 STATUS: DEP CLI FAX #: [phone] RAD #: D/C DT PAGE 2 Signed Report Surgical pathology request 2019-02-06 16:13:05 Test Item Value Reference Range Interpretation Comme nts Case number (test code = [id number]) [id number] Surgical pathology report (test code = See link below for PDF Lab R eport 1639) Result status (test code = 6859750) This is Final Report for [id number] 8955-7 [place] MethodistHemoglobin & [id number] 06:39:19 Test Item Value Reference Range Interpretation Comments HGB (test code = 718-7) 10.5 g/dL 12-16 L HCT (test code = 4544-3) 33.7 % 37-47 L Lab Interpretation (test code = Abnormal 57830-6) [place] MethodistComprehensive metabolic [id number] 07:20:28 Test Item Value Reference Range Interpretation Comments Sodium (test code = 2951-2) 141 135- 148 mEq/L Potassium (test code = 2823-3) 4.2 3.5- 5.0 mEq/L Chloride (test code = 2075-0) 105 98- 112 mEq/L CO2 (test code = 2027-9) 22 24- 31 mEq/L L Anion gap (test code = 79413-8) 14@ANIO 7- 15 mEq/L BUN (test code = 3094-0) 9 mg/dL 6-20 Creatinine (test code = 2160-0) 0.63 mg/dL 0.5-0.9 Glucose (test code = 2345-7) 128 mg/dL 65-99 H Calcium (test code = 81721-8) 9.3 mg/dL 8.3-10.2 Protein (test code = 2885-2) 6.5 g/dL 6.3-8.3 Albumin (test code = 1751-7) 3.7 g/dL 3.5-5 A/G ratio (test code = 1759-0) 1.3 0.7-3.8 Alkaline phosphatase (test code = 65 U/L 35-104 6768-6) AST (test code = 1920-8) 15 U/L 10-35 ALT (test code = 1742-6) 21 U/L 5-50 Total bilirubin (test code = 0.8 mg/dL 0.2-1.2 1974-) Lab Interpretation (test code = Abnormal 99570-7) [place] MethodistEstimated [id number] 07:20:28 Test Item Value Reference Range Interpretation Comments Estimated GFR (test >=90 mL/min/1.73 m2 Caterg ory Units code = 5488) InterpretationG 1 >=90 Normal or highG2 60-89 Mildly xgxhvymjoR1p 45-59 Mildly to mode rately rdoagpudlN2c 30-44 Moderately to severely decreasedG4 15-29 Severely decre asedG5 <15 Kidn ey failureThe eGFR was calculated giovany mccord the Chronic Kidney Disease Epidemiology Co llaboration (CKD-EPI) equat ion. Interpretation is based on recommendations of the National Kidney Foundation-Kidn ey Disease Outcomes Qualit y Initiative (NKF-KDOQI) pub lished in 2013. [facility] MethodistCBC with platelet and [id number] 06:44:17 Test Item Value Reference Range Interpretation Comments WBC (test code = 13526-5) 14.6 4.5- 11.0 k/uL H RBC (test code = 71559-1) 3.55 m/uL 4.2-5.5 L HGB (test code = 718-7) 10.8 g/dL 12-16 L HCT (test code = 4544-3) 34.3 % 37-47 L MCV (test code = 787-2) 96.6 fL 82-100 MCH (test code = 785-6) 30.4 pg 27-34 MCHC (test code = 786-4) 31.5 g/dL 31-37 RDW - SD (test code = 31069-2) 46.1 fL 37-55 MPV (test code = 01360-5) 9.7 fL 6.9-11 Platelet count (test code = 266 K/uL 150-400 51844-3) Nucleated RBC (test code = 90723-1) 0.00 /100 WBC Neutrophils (test code = 25644-0) 76.3 % 39-69 H Lymphocytes (test code = 46770-9) 14.8 % 25-45 L Monocytes (test code = 61111-3) 8.3 % 0-10 Eosinophils (test code = 66160-2) 0.0 % 0-5 Basophils (test code = 64722-7) 0.1 % 0-1 Immature granulocytes (test code = 0.5 % 0-1 68005-1) Lab Interpretation (test code = Abnormal 14391-3) Reddy VillarrealistUrine [id number] 10:14:45 Test Item Value Reference Range Interpretation Comments Urine culture (test SEE COMMENT Bacteriu stoney screen code = 8220468) negative. [place] MethodistUrinalysis screen and microscopy, with reflex to culture 2019-02-01 10:14:44 Test Item Value Reference Range Interpretation Comments Specimen site (test code = Catheterized 1887139) Color, UA (test code = 5778-6) Straw Appearance, UA (test code = Clear 5767-9) Specific gravity, UA (test code 1.009 1.001-1.030 = 5811-5) pH, UA (test code = 5803-2) 6.0 5.0-9.0 Protein, UA (test code = Negative Negative 39355-6) Glucose, UA (test code = Negative Negative 79228-9) Ketones, UA (test code = 2514-8) Negative Negative Bilirubin, UA (test code = Negative Negative 5770-3) Blood, UA (test code = 5794-3) Small Negative A Nitrite, UA (test code = 5802-4) Negative Negative Urobilinogen, UA (test code = <2.0 <2.0 E.U./dL 41599-6) Leukocyte esterase, UA (test Negative Negative code = 5799-2) WBC, UA (test code = 5821-4) <1 0- 4 /HPF RBC, UA (test code = 97151-6) 1 0- 5 /HPF Bacteria, UA (test code = Few None seen 81567-2) Yeast, UA (test code = 46832-3) None seen Yeast with pseudohyphae, UA None seen (test code = 58042-1) Lab Interpretation (test code = Abnormal 57370-2) [place] MethodistPeripheral [id number] 08:28:14Addison Robin MD 02/01/2019 8:28 AMPeripheral BlockPerformed by: Addison Robin MD Authorized by: Addison Robin MD Patient Location: Pre-opReason for Block: at surgeon's request, post-op pain management Staff: Anesthesiologist: Addison Robin MD Performed by: AnesthesiologistPreprocedure: patient identified, IV checked, site and side verified, risks and benefits discussed, procedure verified, surgical consent complete, patient position confirmed, monitors andequipment checked, pre-op evaluation complete and site marked Peripheral Nerve Block: Patient Position: Left lateral decubitus Prep: DuraPrep Block Type: FemoralLaterality: LeftInjection Technique: Single injectionProcedures: ultrasound guided Ultrasound documentation: Printed/placed in chartLocal Infiltration (See MAR for details): RopivacaineLoss of Twitch: 0.5 mANeedle: Needle Type: Pajunk Needle Gauge: 19 G Needle Length: 10 cm Catheter at Skin Depth: 6 cmAssessment: Injec tion Assessment: Visualized needle/local anesthetic surrounding nerve, visualized pertinent vascular structures and nerves, needle tip visualized at all times during injection of medication, intermittent aspiration during local anesthetic administration and no symptoms of intraneural/intravenous injection Heart Rate Change: No Slow Fractionated Injection: Yes Block outcome: No apparent complications, patient comfortable and patient tolerated procedure wellNotes: 10cc 0.5N LEFT ANTERIORFEMORAL CUTANEOUS BLOCKTime Out done immediately before procedureLittle [place] MethodistPeripheral [id number] 08:27:45 Addison Robin MD 02/01/2019 8:28 AMPeripheral BlockPerformed by: Addison Robin MDAuthorized by: Addison Robin MD Patient Location: Pre-opReason for Block: at surgeon's request, post-op pain management Staff: Anesthesiologist: Addison Robin MD Performed by: An esthesiologistPreprocedure: patient identified, IV checked, site and side verified, risks and benefits discussed, procedure verified, surgical consent complete, patient position confirmed, monitors andequipment checked, pre-op evaluation complete and site marked Peripheral Nerve Block: Patient Position: Right lateral decubitus Prep: DuraPrep Block Type: IPACKLaterality: LeftInjection Technique: Single injectionProcedures: ultrasound guided Ultrasound documentation: Printed/placed in chartLocal Infiltration (See MAR for details): RopivacaineLoss of Twitch: 0.5 mANeedle: Needle Type:Pajunk Needle Gauge: 19 G Needle Length: 10 cm Catheter at Skin Depth: 6 cmAssessment: Injection Assessment: Visualized needle/local anesthetic surrounding nerve, visualized pertinent vascularstructures and nerves, needle tip visualized at all times during injection of medication, intermittent aspiration during local anesthetic administration and no symptoms of intraneural/intravenous injection Heart Rate Change: No Slow Fractionated Injection: Yes Block outcome: No apparent complications, patient comfortable and patient tolerated procedure wellNotes: 20cc 0.5NTime Out done immediately before procedureLittle [place] Centeripheral [id number] 08:27:18FlorAddison villavicencio MD 02/01/2019 8:27 AMPeripheral BlockPerformed by: Addison Robin MDAuthorized by: Addison Robin MD Patient Location: Pre- opReason for Block: at surgeon's request, post-op pain management Staff: Anesthesiologist: Addison Robin MD Performed by: An esthesiologistPreprocedure: patient identified, IV checked, site and side verified, risks and benefits discussed, procedure verified, surgical consent complete, patient position confirmed, monitors andequipment checked, pre-op evaluation complete and site marked Peripheral Nerve Block: Patient Position: Supine Prep: DuraPrep Block Type: Adductor canal (Left Femoral Adductor Canal Catheter)Laterality: LeftInjection Technique: Catheter insertionProcedures: ultrasound guided Ultrasound documentation: Printed/placed in chartLocal Infiltration (See MAR for details): RopivacaineNeedle: Needle Type: Pajunk Needle Gauge: 19 G Needle Length: 10 cm Catheter at Skin Depth: 6 cmAssessment: Injection Assessment: Visualized needle/local anesthetic surrounding nerve, visualized pertinent vascular structures and nerves, needle tip visualized at all times during injection of medication, intermittent aspiration during local anesthetic administration and no symptoms of intraneural/intravenous injection Heart Rate Change: No Slow Fractionated Injection: Yes Block outcome: No apparent complications, patient comfortable and patient tolerated procedure wellNotes: 20cc 0.5N and 4mg decadronTime Out done immediately before procedureCH[facility] [id number] 07:52:53 Test Item Value Reference Range Interpretation Comments POC glucose (test code 92 mg/dL 65-99 Meter ID: = [id number]) [id number] tor: Wendyadrienne Sanchez Reddy CalderaG Pre/Post [id number] 10:13:20 Test Item Value Reference Range Interpretation Comments Ventricular rate (test 61 code = 253) Atrial rate (test code = 61 255) OK interval (test code = 164 266) QRSD interval (test code 88 = 260) QT interval (test code = 406 264) QTC interval (test code 408 = 265) P axis 1 (test code = 20 267) QRS axis 1 (test code = 6 268) T wave axis (test code = 24 270) EKG impression (test Normal sinus code = 273) rhythm-Minimal voltage criteria for LVH, may be normal variant-Cannot rule out Anterior infarct , age undetermined-Abnormal ECG-No previous ECGs available-Electronica lly Signed By Leonard Trejo MD ([id number]) on 01/19/2019 10:13:18 AM [place] MethodistType and [id number] 11:57:00 Test Item Value Reference Range Interpretation Comments ABO grouping (test code = 883-9) A Rh type (test code = 46129-2) POS Antibody screen (gel) (test code = NEG 890-4) [place] MethodistBasic metabolic [id number] 10:09:51 Test Item Value Reference Range Interpretation Comments Sodium (test code = 2951-2) 141 135- 148 mEq/L Potassium (test code = 2823-3) 4.4 3.5- 5.0 mEq/L Chloride (test code = 5-0) 104 98- 112 mEq/L CO2 (test code = 2027-9) 27 24- 31 mEq/L Anion gap (test code = 53075-6) 10@ANIO 7- 15 mEq/L BUN (test code = 3094-0) 13 mg/dL 6-20 Creatinine (test code = 2160-0) 0.75 mg/dL 0.5-0.9 Glucose (test code = 2345-7) 98 mg/dL 65-99 Calcium (test code = 00516-1) 10.0 mg/dL 8.3-10.2 [place] MethodistHemoglobin [id number] 10:05:36 Test Item Value Reference Range Interpretation Comments Hemoglobin A1C (test 5.5 % 4-5.6 HbA1c c utoffs for code = 57599-9) diagnosing d iabetes:4.0% - 5.6% = normal 5.7% - 6.4% = increase d risk for diabetes (prediabetes) >=6.5% = diabetes Goals for glycemic contro l (ADA 2016)< 7.0% Ta rget for non zora lts with diabetes. More or less stringent targe ts may be appropriate for individual danelle ents. <7.5% Target for Children and ad olescents with type 1 molina betes. [place] [facility]I Signature Knee [id number] 12:56:58Hm Interface, Radiology Results Incoming - 12/24/2018 1:00 PM CDTEXAMINATION: MRI SIGNATURE KNEE LEFTCLINICAL HISTORY: M17.12 Unilateral primary osteoarthritis left knee, osteoarthritis of the left knee COMPARISON: Radiographs of left knee performed November 22, 2018TECHNIQUE: Multiplanar multisequence MR imaging of the left knee was performed utilizing an extremity coil. No contrast was administered. This exam was completed according to the signature protocol.IMPRESSION:1. Moderate patellofemoral compartment predominant tricompartmental left knee osteoarthritis with degenerative type tearing of boththe medial and lateral menisci and multifocal cartilage loss worst in the patellofemoral compartment. There is no knee joint effusion. Suspected small shipman's cyst. 2. Limited sequences of the left hipand ankle were obtained according to the signature protocol for prosthesis planning. There is no fracture or other osseous abnormality of the left hip or the left ankle. 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 Colonic diverticulosis without evidence of diverticulitis isnoted.[facility]-[id number] MethodistLarge Joint Arthrocentesis: knee, L knee, R [id number] 10:10:00MaSherie estes MD 11/22/2018 10:47 AMLarge Joint Arthrocentesis: knee, L knee, R kneeConsent given by: patientTimeout: Immediately prior to procedure a time out was called to verify the correct patient, procedure, equipment, computer network support specialist and site/side marked as required Supporting DocumentationIndications: pain and joint swelling Procedure DetailsPreparation: Patient was prepped and draped in the usual sterile fashionLocation: knee - L knee and R kneeHeartland Behavioral Health Servicesston MethodistUrinalysis macro (dipstick) panel - [id number] 15:54:16 Test Item Value Reference Range Interpretation Comments Leukocytes (test code = Small Leukocytes) Nitrite (test code = negative Nitrite) Urobilinogen (test code = .2 Urobilinogen) Protein (test code = Negative Protein) pH (test code = pH) 6.0 Blood (test code = Blood) Non-Hemolyzed: Trace Specific [place] (test 1.005 code = Specific [place]) Ketone (test code = Negative Ketone) Bilirubin (test code = Negative Bilirubin) Glucose (test code = Negative Glucose) Appearance (test code = Clear Appearance) Color (test code = Color) Yellow [facility]
[2019-09-16] MEDS ORDERED: MORPHINE 4 MG/ML SYR ONE (23:40)
[2019-09-16] MEDS ORDERED: ONDANSETRON 4 MG/2 ML VIAL ONE (23:40)
[2019-09-16] MEDS ORDERED: NA CHLORIDE 0.9% 1,000 ML ONE (23:41)
[2019-09-16] MEDS ORDERED: FAMOTIDINE 20 MG/2 ML VIAL IV ONE (23:41)
[2019-09-16 23:52] LABS: Absolute Lymphocytes (CBC) 1.3 K/uL (0.7-4.9); Basophils % 0.4 % (0-1.3); Hematocrit 40.6 % (36.0-45.0); Lymphocytes % 7.1 % (15.3-44.8); MPV 8.8 fL (7.6-11.3); RBC Red Blood Cell Count 4.53 M/uL (3.86-4.86)
[2019-09-17] MEDS ORDERED: ONDANSETRON 4 MG/2 ML VIAL ONE ×3 (00:10→16:20)
[2019-09-17] MEDS ORDERED: MORPHINE 4 MG/ML SYR ONE (00:10)
[2019-09-17 00:34] LABS: Albumin 3.8 g/dL (3.4-5.0); Bilirubin Direct 2.1 mg/dL (0-0.2); Bilirubin Total 4.1 mg/dL (0.2-1.0); Potassium 3.8 mmol/L (3.5-5.1); Protein, Total 8.4 g/dL (6.4-8.2)
[2019-09-17] MEDS ORDERED: PIPER/TAZO/NS 3.375gm 3.375 GM/100 ML BAG ONE ×2 (00:39→06:19)
[2019-09-17] MEDS ORDERED: NA CHLORIDE 0.9% 500 ML ONE (00:39)
[2019-09-17] MEDS ORDERED: NA CHLORIDE 0.9% 1,000 ML ONE (00:40)
[2019-09-17] MEDS ORDERED: HYDROMORPHONE HCL 2 MG/ML inj ONE (01:06)
--- NOTE | 2019-09-17 01:21 | EDPHYS ---
Physician Documentation [facility] Name: Kristy Wilcox Age: 53 yrs Sex: Female : 1965 Arrival Date: 09/16/2019 Time: 23:17 Bed 23 Private MD: ED Physician Nathanael Sanchez HPI: 09/15 23:32 This 53 yrs old Female presents to ER via Unassigned with complaints of Upper ronald Back Pain. 23:32 The patient presents with abdominal pain in the upper abdomen, abdominal distention in ronald the upper abdomen, in the lower abdomen. Onset: The symptoms/episode began/occurred 1 day(s) ago. The symptoms do not radiate. Associated signs and symptoms: Pertinent positives: nausea. The symptoms are described as crampy, dull. Modifying factors: The symptoms are alleviated by nothing, the symptoms are aggravated by nothing. Severity of pain: At its worst the pain was moderate in the emergency department the pain is unchanged. The patient has not experienced similar symptoms in the past. HAIR TINTER: 23:52 LMP N/A - Hysterectomy em Historical: - Allergies: 23:52 No Known Allergies; em - Home Meds: 23:52 Zoloft 50 mg Oral tab 1 tab once daily for Anxiety with Depression [Active]; em - PMHx: 23:52 Anxiety; Depression; Headaches; High Cholesterol; Hypertension; Migraines; em - PSHx: 23:52 Hysterectomy; Knee surgery; em - Immunization history:: Adult Immunizations up to date. - Social history:: Smoking status: Patient denies any tobacco usage or history of. - Family history:: not pertinent. ROS: 23:32 Constitutional: Negative for fever, chills, and weight loss, Eyes: Negative for injury, ronald pain, redness, and discharge, ENT: Negative for injury, pain, and discharge, Neck: Negative for injury, pain, and swelling, Cardiovascular: Negative for chest pain, palpitations, and edema, Respiratory: Negative for shortness of breath, cough, wheezing, and pleuritic chest pain, Back: Negative for injury and pain, : Negative for injury, bleeding, discharge, and swelling, MS/Extremity: Negative for injury and deformity, Skin: Negative for injury, rash, and discoloration, Neuro: Negative for headache, weakness, numbness, tingling, and seizure, Psych: Negative for depression, anxiety, suicide ideation, homicidal ideation, and hallucinations, Allergy/Immunology: Negative for hives, rash, and allergies, Endocrine: Negative for neck swelling, polydipsia, polyuria, polyphagia, and marked weight changes, Hematologic/Lymphatic: Negative for swollen nodes, abnormal bleeding, and unusual bruising. 23:32 Abdomen/GI: Positive for abdominal pain, abdominal cramps, abdominal distension, of the right upper quadrant and left upper quadrant. Exam: 23:32 Constitutional: This is a well developed, well nourished patient who is awake, alert, ronald and in no acute distress. Head/Face: Normocephalic, atraumatic. Eyes: Pupils equal round and reactive to light, extra-ocular motions intact. Lids and lashes normal. Conjunctiva and sclera are non-icteric and not injected. Cornea within normal limits. Periorbital areas with no swelling, redness, or edema. ENT: Nares patent. No nasal discharge, no septal abnormalities noted. Tympanic membranes are normal and external auditory canals are clear. Oropharynx with no redness, swelling, or masses, exudates, or evidence of obstruction, uvula midline. Mucous membranes moist. Neck: Trachea midline, no thyromegaly or masses palpated, and no cervical lymphadenopathy. Supple, full range of motion without nuchal rigidity, or vertebral point tenderness. No Meningismus. Chest/axilla: Normal chest wall appearance and motion. Nontender with no deformity. No lesions are appreciated. Cardiovascular: Regular rate and rhythm with a normal S1 and S2. No gallops, murmurs, or rubs. Normal PMI, no JVD. No pulse deficits. Respiratory: Lungs have equal breath sounds bilaterally, clear to auscultation and percussion. No rales, rhonchi or wheezes noted. No increased work of breathing, no retractions or nasal flaring. Back: No spinal tenderness. No costovertebral tenderness. Full range of motion. Skin: Warm, dry with normal turgor. Normal color with no rashes, no lesions, and no evidence of cellulitis. MS/ Extremity: Pulses equal, no cyanosis. Neurovascular intact. Full, normal range of motion. Neuro: Awake and alert, GCS 15, oriented to person, place, time, and situation. Cranial nerves II-XII grossly intact. Motor strength 5/5 in all extremities. Sensory grossly intact. Cerebellar exam normal. Normal gait. Psych: Awake, alert, with orientation to person, place and time. Behavior, mood, and affect are within normal limits. 23:32 Abdomen/GI: Inspection: distension, Bowel sounds: normal, Palpation: mild abdominal tenderness, in the right upper quadrant and left upper quadrant, Liver: tenderness, Hernia: not appreciated. Vital Signs: 23:45 BP 134 / 70; Pulse 73; Resp 16; Temp 97; em 23:45 Pulse Ox 97% ; Weight 95.25 kg; Height 5 ft. 6 in. (167.64 cm); Pain 10/10; em 09/16 00:39 BP 126 / 77; Pulse 72; Resp 16; Temp 97.2; Pulse Ox 96% ; Pain 7/10; em 00:44 BP 126 / 77; em 00:44 BP 126 / 77; em 02:22 BP 112 / 61; Pulse 68; Resp 16; Temp 98.2; Pulse Ox 96% ; Pain 5/10; lp1 09/15 23:45 Body Mass Index 33.89 (95.25 kg, 167.64 cm) em MDM: 09/15 23:22 Patient medically screened. [facility] 23:34 Differential diagnosis: cholecystitis, Cholelithiasis, diverticulitis, gastritis, ronald gastroesophageal reflux disease, non-specific abd pain, pancreatitis, Peptic Ulcer Disease, urinary tract infection. Data reviewed: vital signs, nurses notes, lab test result(s), EKG, radiologic studies, CT scan, plain films. 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 Test interpretation: by ED physician or midlevel provider: ECG. Counseling: I had a detailed discussion with the patient and/or guardian regarding: the historical points, exam findings, and any diagnostic results supporting the discharge/admit diagnosis, lab results, radiology results, the need for further work-up and treatment in the hospital. Medication response: Zofran relieved the patient's nausea. 09/15 23:32 Order name: Basic Metabolic Panel; Complete Time: 01:19 ronald 09/15 23:32 Order name: CBC with Diff; Complete Time: 00:14 ronald 09/15 23:32 Order name: Hepatic Function; Complete Time: 01:19 [facility] 09/15 23:32 Order name: Lipase; Complete Time: 01:19 [facility] 09/16 01:11 Order name: CORONAVIRUS EDIL 09/16 01:18 Order name: Urine Dipstick--Ancillary (enter results) ar 09/15 23:32 Order name: CT Abd/Pelvis - PO and IV Contrast [facility] 09/15 23:36 Order name: Chest Single View XRAY [facility] 09/16 01:18 Order name: Urine --Ancillary (enter results) ar 09/15 23:32 Order name: IV Saline Lock; Complete Time: 23:59 [facility] 09/15 23:32 Order name: Labs collected and sent; Complete Time: 23:59 [facility] 09/15 23:32 Order name: EKG; Complete Time: 23:32 [facility] 09/15 23:32 Order name: EKG - Nurse/Tech [facility] Administered Medications: 23:56 Drug: Zofran (Ondansetron) 4 mg Route: IVP; Rate: 2 mg/min; Site: right antecubital; em 09/16 00:45 Follow up: Response: No adverse reaction 09/15 23:57 Drug: Pepcid 20 mg Route: IVP; Rate: 10 mg/min; Infused Over: 2 mins; Site: right em antecubital; 23:57 Drug: morphine 4 mg Route: IVP; Rate: 2 mg/min; Site: right antecubital; em 09/16 00:46 Follow up: Response: No adverse reaction 09/15 23:58 Drug: NS 0.9% 1000 ml Route: IV; Rate: 1 bolus; Infused Over: 1000 continuous; Site: em right antecubital; Delivery: Level 1 Tubing; 09/16 00:14 Drug: morphine 4 mg Route: IVP; Rate: 2 mg/min; Site: right antecubital; lp1 00:45 Follow up: Response: Pain is decreased em 00:15 Drug: Zofran (Ondansetron) 4 mg Route: IVP; Rate: 2 mg/min; Site: right antecubital; lp1 00:45 Follow up: Response: Marked relief of symptoms em 00:16 Drug: Zosyn 3.375 grams Route: IVPB; Rate: 50 ml/hr; Infused Over: 60 mins; Site: right lp1 antecubital; Delivery: Secondary tubing; 00:45 Follow up: Urine output 50 ml; Response: No adverse reaction em 00:17 Drug: NS 0.9% 500 ml Route: IV; Rate: bolus; Infused Over: 30 mins; Site: right lp1 antecubital; Delivery: Primary tubing; 00:44 Follow up: BP 126 / 77; Urine output 500 ml; Response: No adverse reaction em 00:17 Drug: NS 0.9% 1000 ml Route: IV; Rate: 125 ml/hr; Infused Over: 8 hrs; Site: right lp1 antecubital; Delivery: Primary tubing; 00:44 Follow up: BP 126 / 77; Urine output 1000 ml; Response: No adverse reaction em 01:00 Drug: Dilaudid 1 mg Route: IVP; Rate: 1 mg/min; Infused Over: 1 mins; Site: right lp1 antecubital; 02:22 Follow up: Response: No adverse reaction lp1 02:20 Drug: Phenergan 12.5 mg Route: IVP; Rate: 12.5 mg/min; Infused Over: 1 mins; Site: lp1 right antecubital; 02:21 Follow up: Response: Marked relief of symptoms lp1 02:21 Drug: Dilaudid 1 mg Route: IVP; Rate: 1 mg/min; Infused Over: 1 mins; Site: right lp1 antecubital; 02:22 Follow up: Response: Marked relief of symptoms lp1 Disposition: 09/17/19 01:20 Hospitalization ordered by Armani Moore for Inpatient Admission. Preliminary diagnosis are Cholelithiasis, Cholecystitis, Elevated white blood cell count, Abdominal tenderness. - Bed requested for Telemetry/MedSurg (Inpatient). - Status is Inpatient Admission. lp1 - Condition is Stable. - Problem is new. - Symptoms have improved. Signatures: Dispatcher [employer] EDRonel Blank RN RN mw Anderson, Corey, MD MD cha Munoz, Edgar, RN RN em Genny Cat RN RN lp1 Corrections: (The following items were deleted from the chart) 01:34 01:20 Hospitalization Ordered by Armani Moore MD for Inpatient Admission. Preliminary mw diagnosis is Cholelithiasis; Cholecystitis; Elevated white blood cell count; Abdominal tenderness. Bed requested for Telemetry/MedSurg (Inpatient). Status is Inpatient Admission. Condition is Stable. Problem is new. Symptoms have improved. [facility] 02:56 01:34 09/17/2019 01:20 Hospitalization Ordered by Armani Moore MD for Inpatient lp1 Admission. Preliminary diagnosis is Cholelithiasis; Cholecystitis; Elevated white blood cell count; Abdominal tenderness. Bed requested for Telemetry/MedSurg (Inpatient). Status is Inpatient Admission. Condition is Stable. Problem is new. Symptoms have improved. mw
--- NOTE | 2019-09-17 01:21 | ER ---
Nurse's Notes [facility] Name: Kristy Wilcox Age: 53 yrs Sex: Female : 1965 Arrival Date: 09/16/2019 Time: 23:17 Bed 23 Private MD: Diagnosis: Cholelithiasis;Cholecystitis;Elevated white blood cell count;Abdominal tenderness Presentation: 09/15 23:45 Chief complaint: Patient states: right upper quadrant pain radiates to right shoulder em began yesterday. c/o nausea and vomiting after eating soup today. Coronavirus screen: Proceed with normal triage. Patient denies a cough. Patient denies shortness of breath or difficulty breathing. Patient denies measured and/or subjective temperature greater than 100.4F prior to today's visit. Patient denies travel on a cruise ship or to a country the [facility] currently lists as an affected area. Patient denies contact with known and/or suspected case of COVID-19. 23:45 Method Of Arrival: Ambulatory em 23:45 Ebola Screen: Patient negative for fever greater than or equal to 101.5 degrees em Fahrenheit, and additional compatible Ebola Virus Disease symptoms Patient denies exposure to infectious person. Patient denies travel to an Ebola-affected area in the 21 days before illness onset. No symptoms or risks identified at this time. Initial Sepsis Screen: Does the patient meet any 2 criteria? No. Patient's initial sepsis screen is negative. Risk Assessment: Do you want to hurt yourself or someone else? Patient reports no desire to harm self or others. Onset of symptoms was September 15, 2019. 23:45 Acuity: LYUBOV 3 em Triage Assessment: 23:52 General: Appears uncomfortable, Behavior is calm, cooperative. Pain: Complains of pain em in right upper quadrant and left upper quadrant Pain radiates to right scapular area Pain currently is 10 out of 10 on a pain scale. Quality of pain is described as sharp, Pain began 1 day ago. Is intermittent. EENT: No deficits noted. Neuro: No deficits noted. Cardiovascular: No deficits noted. Respiratory: No deficits noted. GI: Reports lower abdominal pain, nausea, vomiting. : No deficits noted. Derm: No deficits noted. Musculoskeletal: No deficits noted. MUSTANGER: 23:52 LMP N/A - Hysterectomy em Historical: - Allergies: 23:52 No Known Allergies; em - Home Meds: 23:52 Zoloft 50 mg Oral tab 1 tab once daily for Anxiety with Depression [Active]; em - PMHx: 23:52 Anxiety; Depression; Headaches; High Cholesterol; Hypertension; Migraines; em - PSHx: 23:52 Hysterectomy; Knee surgery; em - Immunization history:: Adult Immunizations up to date. - Social history:: Smoking status: Patient denies any tobacco usage or history of. - Family history:: not pertinent. Screenin/24 00:39 Abuse screen: Denies threats or abuse. Nutritional screening: No deficits noted. em Tuberculosis screening: No symptoms or risk factors identified. Fall Risk None identified. Assessment: 00:39 Reassessment: Patient and/or family updated on plan of care and expected duration. Pain em level reassessed. Patient states feeling better. Patient states symptoms have improved. General: Appears uncomfortable, Behavior is calm, cooperative. Pain: Complains of pain in right upper quadrant and left upper quadrant Pain currently is 6 out of 10 on a pain scale. Quality of pain is described as sharp, Pain began 1 day ago. Is intermittent. Neuro: No deficits noted. Cardiovascular: No deficits noted. Respiratory: No deficits noted. GI: Reports upper abdominal pain, Patient currently denies nausea, vomiting. : No deficits noted. EENT: No deficits noted. Derm: No deficits noted. Musculoskeletal: No deficits noted. 02:22 Reassessment: Patient and/or family updated on plan of care and expected duration. Pain lp1 level reassessed. Patient is alert, oriented x 3, equal unlabored respirations, skin warm/dry/pink. patient returned from CT. c/o abd pain, medicated with dilaudid. Vital Signs: 09/15 23:45 BP 134 / 70; Pulse 73; Resp 16; Temp 97; em 23:45 Pulse Ox 97% ; Weight 95.25 kg; Height 5 ft. 6 in. (167.64 cm); Pain 10/10; em 09/16 00:39 BP 126 / 77; Pulse 72; Resp 16; Temp 97.2; Pulse Ox 96% ; Pain 7/10; em 00:44 BP 126 / 77; em 00:44 BP 126 / 77; em 02:22 BP 112 / 61; Pulse 68; Resp 16; Temp 98.2; Pulse Ox 96% ; Pain 5/10; lp1 09/15 23:45 Body Mass Index 33.89 (95.25 kg, 167.64 cm) em Vitals: 00:39 Cardiac Rhythm Assessment Regular Sinus rhythm. em ED Course: 09/15 23:17 Patient arrived in ED. cl3 23:22 Nathanael Sanchez MD is Attending Physician. ronald 23:45 Sawyer Altman RN is Primary Nurse. em 23:50 Triage completed. em 23:52 Arm band placed on right wrist. Patient placed in an exam room. EKG completed in em triage. Results shown to MD. Antipyretics given from triage as ordered by an ER provider. 09/16 00:33 Chest Single View XRAY In Process Unspecified. EDMS 00:[address] Scan. em 00:39 Patient has correct armband on for positive identification. Bed in low position. Side em rails up X2. 00:39 No provider procedures requiring assistance completed. Inserted saline lock: 20 gauge em in right antecubital area, using aseptic technique. 01:20 Armani Moore MD is Hospitalizing Provider. [facility] 02:22 Door closed. Noise minimized. Visitors limited. Lights dimmed. Pillow given. Head of lp1 bed elevated. 02:53 Resting quietly. To room 223, Report called to HERBIE Barry. lp1 Administered Medications: 09/15 23:56 Drug: Zofran (Ondansetron) 4 mg Route: IVP; Rate: 2 mg/min; Site: right antecubital; em 09/16 00:45 Follow up: Response: No adverse reaction em 09/15 23:57 Drug: Pepcid 20 mg Route: IVP; Rate: 10 mg/min; Infused Over: 2 mins; Site: right em antecubital; 23:57 Drug: morphine 4 mg Route: IVP; Rate: 2 mg/min; Site: right antecubital; em 09/16 00:46 Follow up: Response: No adverse reaction em 09/15 23:58 Drug: NS 0.9% 1000 ml Route: IV; Rate: 1 bolus; Infused Over: 1000 continuous; Site: em right antecubital; Delivery: Level 1 Tubing; 09/16 00:14 Drug: morphine 4 mg Route: IVP; Rate: 2 mg/min; Site: right antecubital; lp1 00:45 Follow up: Response: Pain is decreased em 00:15 Drug: Zofran (Ondansetron) 4 mg Route: IVP; Rate: 2 mg/min; Site: right antecubital; lp1 00:45 Follow up: Response: Marked relief of symptoms em 00:16 Drug: Zosyn 3.375 grams Route: IVPB; Rate: 50 ml/hr; Infused Over: 60 mins; Site: right lp1 antecubital; Delivery: Secondary tubing; 00:45 Follow up: Urine output 50 ml; Response: No adverse reaction em 00:17 Drug: NS 0.9% 500 ml Route: IV; Rate: bolus; Infused Over: 30 mins; Site: right lp1 antecubital; Delivery: Primary tubing; 00:44 Follow up: BP 126 / 77; Urine output 500 ml; Response: No adverse reaction em 00:17 Drug: NS 0.9% 1000 ml Route: IV; Rate: 125 ml/hr; Infused Over: 8 hrs; Site: right lp1 antecubital; Delivery: Primary tubing; 00:44 Follow up: BP 126 / 77; Urine output 1000 ml; Response: No adverse reaction em 01:00 Drug: Dilaudid 1 mg Route: IVP; Rate: 1 mg/min; Infused Over: 1 mins; Site: right lp1 antecubital; 02:22 Follow up: Response: No adverse reaction lp1 02:20 Drug: Phenergan 12.5 mg Route: IVP; Rate: 12.5 mg/min; Infused Over: 1 mins; Site: lp1 right antecubital; 02:21 Follow up: Response: Marked relief of symptoms lp1 02:21 Drug: Dilaudid 1 mg Route: IVP; Rate: 1 mg/min; Infused Over: 1 mins; Site: right lp1 antecubital; 02:22 Follow up: Response: Marked relief of symptoms lp1 Intake: 00:39 IV: 1000ml (IV Fluid); Total: 1000ml. em Output: 00:44 Urine: 1000ml; Total: 1000ml. em 00:44 Urine: 500ml; Total: 1500ml. em 00:45 Urine: 50ml; Total: 1550ml. em Outcome: 01:20 Decision to Hospitalize by Provider. ronald 02:53 Admitted to Med/surg accompanied by nurse, via stretcher, room 223, Report called to lp1 Jhonny Reno RN 02:53 Condition: improved 02:56 Patient left the ED. lp1 Signatures: Dispatcher [employer] Nathanael East MD MD cha Munoz, Edgar, RN RN Genny Anand RN RN lp1 Preston Jiang cl3
[2019-09-17 01:57] LABS: Urine Blood TRACE (NEG); Urine Glucose NEGATIVE (NEG); Urine Protein TRACE (NEG); Urine Specific Gravity 1.015 (1.005-1.030)
[2019-09-17] MEDS ORDERED: PROMETHAZINE INJ 25 MG/ML AMP ONE (02:39)
[2019-09-17 03:42] VITALS: BMI 34.9
[2019-09-17] MEDS ORDERED: MORPHINE 4 MG/ML SYR IV PRN (03:43)
[2019-09-17] MEDS: NA CHLORIDE 0.9% 1,000 ML IV SCH ×5 (03:43→19:43)
[2019-09-17] MEDS ORDERED: PIPER/TAZO/NS 3.375gm 3.375 GM/100 ML BAG IVPB SCH (06:00)
[2019-09-17] MEDS: ONDANSETRON 4 MG/2 ML VIAL IV PRN ×2 (06:25→17:15)
[2019-09-17] MEDS: FAMOTIDINE 20 MG/2 ML VIAL IV SCH ×2 (08:55→20:07)
[2019-09-17] MEDS: ACETAMINOPHEN 325 MG TABLET PO PRN (08:55)
--- NOTE | 2019-09-17 11:34 | RAD REPORT ---
EXAM DESCRIPTION: RAD - Chest Single View - 09/17/2019 12:32 am CLINICAL HISTORY: ABDOMINAL DISTENTION COMPARISON: None TECHNIQUE: AP portable chest image was obtained 09/17/2019 12:32 am . FINDINGS: No focal mass or consolidation. No failure or volume overload. Interstitial pattern is not outside of range of normal for portable technique and shallow inspiration. Heart and vasculature are normal. No measurable pleural effusion and no pneumothorax. No acute bony abnormality seen. No acute aortic findings suspected. IMPRESSION: No acute cardiopulmonary process. Minimal prominence of the interstitial pattern is believed be baseline rather than edema or infiltrat e.
--- NOTE | 2019-09-17 12:10 | P.HP ---
Date of Service: 09/17/19 PC: This 53-year-old female presents emergency room with severe right upper quadrant abdominal pain for evaluation treatment. HPC: Sunitha began experiencing severe right upper quadrant abdominal pain last night. Radiating down into her right lower quadrant especially her back between her shoulders. Pain was excruciating. In the ER managed to get relief but still is uncomfortable. Has had pain like this in the past was unsure what it was. PMH: Depression, hypertension PSHx: Previous hysterectomy, knee surgery SOC: No known allergies SYS REVIEW: No cough, wheeze, shortness of breath. No chest pain or palpitations. No urinary complaints. Was in her usual good health until this O/E awake alert vital signs are stable but still mildly uncomfortable HEENT: She is not clinically jaundiced Chest: Chest movement equal bilaterally ABD: Still has persistent mild right upper quadrant tenderness LOCO: Intact DATA: Elevated white cell count, elevated bili Tapia. CT scan demonstrates acute cholecystitis. IMPRESSION: Acute on chronic cholecystitis with cholelithiasis possible choledocholithiasis PLAN: I will take her to the operating room for laparoscopic possible open cholecystectomy with cholangiogram. The risks of this procedure have been discussed. The possibility of bleeding, infection, injury to blood vessels, bowels, bile ducts and surrounding structures were explained. The possible need for an open and/or further surgeries and procedures was discussed. She understands and wants us to proceed.
[2019-09-17] MEDS: PIPER/TAZO/NS 3.375gm 3.375 GM/100 ML BAG IVPB SCH ×2 (12:57→17:15)
[2019-09-17] MEDS ORDERED: propofoL 200 MG/20 ML VIAL IV ONE (13:22)
[2019-09-17] MEDS ORDERED: ROCURONIUM 50 MG/5 ML VIAL IV ONE (13:22)
[2019-09-17] MEDS ORDERED: FENTANYL CITR 100 MCG/2 ML ONE ×2 (13:22→15:03)
[2019-09-17] MEDS ORDERED: LIDOCAINE 2% MPF 5 ML VIAL ONE (13:22)
[2019-09-17] MEDS ORDERED: dexAMETHasone 10 MG/ML VIAL ONE (14:39)
[2019-09-17] MEDS ORDERED: KETOROLAC 30 MG/ML INJ ONE (14:39)
[2019-09-17] MEDS ORDERED: GLYCOPYRROLATE 0.2 MG/ML SYR ONE (15:05)
[2019-09-17] MEDS ORDERED: NEOSTIGMINE 1 MG/ML -5 ML ONE (15:05)
[2019-09-17] MEDS ORDERED: Ringers Lactate 1,000 ML IV ONE (15:17)
--- NOTE | 2019-09-17 15:44 | P.OP ---
Preoperative diagnosis: Acute cholecystitis with cholelithiasis, possible choledocholithiasis Postoperative diagnosis: Acute cholecystitis with cholelithiasis Primary procedure: Laparoscopic cholecystectomy Secondary procedure: Cholangiogram Anesthesia: General Estimated blood loss: Less than 1 0 cc Specimen: Gallbladder and contents Findings: Hydrops of the gallbladder Operative Technique: The patient brought the operating room placed supine on the table. After induction of adequate general endotracheal anesthesia, there that was prepped with a DuraPrep solution, and she was draped in usual aseptic manner. A subumbilical incision was made. This was brought down through the skin and subcutaneous tissue. The Visiport was now used to enter the peritoneal cavity and created pneumoperitoneum to approximately 12 mm of mercury. With the patient placed in reverse Trendelenburg and rolled to the left. A 5 mm trocar was placed in the upper midline, and 2 others on the right lateral side of the abdominal wall. Attention was turned towards the right upper quadrant process chest under the liver. We were able to see. It was gently dissected down completely using blunt sharp dissection and judicious use of electro cautery. The distended and edematous gallbladder was aspirated of its contents. We obtained white bile. Another was placed down by Anette's pouch applying lateral traction we dissected out and exposed the cystic duct and artery. Attention was turned towards the cystic duct 1st. It is was gently milked for back towards the gallbladder itself. A clip was then placed between the gallbladder and cystic duct. An opening was made into the cystic duct through which we room table able to obtain a normal intraoperative cholangiogram. There was 1 small filling defects seen that this was cleared as it now removed. 2 clips were placed on the distal portion of the cystic duct which was transected. These clips were inspected to ensure adequate closure. This seemed to be intact. Attention was turned towards the artery. It was dealt with in a similar fashion. At this point the gallbladder was now dissected free from the liver bed. It was placed Endo-Catch. It was through the umbilical trocar site. Attention was turned back towards the peritoneal cavity. The area was irrigated with a copious amount of saline solution was clear. This was aspirated from the peritoneal cavity. The umbilical trocar site was now approximated with 2 absorbable sutures Close to close the facile defect. The pneumoperitoneum was now collapsed, the trocars removed, and cynthia applied to the skin after tying the suture. It also should also should be noted be in a Darcy block on the right side using 0.25% Marcaine approximately 8 cc At the end of procedure cynthia were applied to the skin and she was stable when sent to the recovery room. Needle sponge instrument count were correct. Complications: None Transferred to: Recovery Room Condition: Good
[2019-09-17] MEDS ORDERED: HYDRALAZINE HCL 20 MG/ML VIAL ONE (15:47)
[2019-09-17] MEDS: HYDROMORPHONE HCL 1 MG/ML INJ ONE ×2 (16:05→16:10)
[2019-09-17] MEDS ORDERED: HYDROMORPHONE HCL 1 MG/ML INJ ONE (16:20)
--- NOTE | 2019-09-17 17:04 | RAD REPORT ---
EXAM DESCRIPTION: RAD - Cholangiogram Oper-Xray Or - 09/17/2019 4:08 pm FINDINGS: Intra operative cholangiogram was performed. There were 8 portable C-arm acquisitions obta ined. A round lucent filling defect is present in the midportion of the common bile duct. This is bel ieved to be the balloon tip of the inserted wire. This needs correlation with findings during real-ti me evaluation. Fluoro time was 0.4 minutes.
[2019-09-17] MEDS: MORPHINE 4 MG/ML SYR IV PRN ×3 (17:16→22:31)
--- NOTE | 2019-09-17 19:42 | RAD REPORT ---
EXAM DESCRIPTION: CT - Abdomen Pelvis W Contrast - 09/17/2019 6:55 am CLINICAL HISTORY: The patient is 53 years old and is Female; ABD PAIN TECHNIQUE: Axial computed tomography images of the abdomen and pelvis with intravenous contrast. S agittal and coronal reformatted images were created and reviewed. This CT exam was performed using one or more of the following dose reduction techniques: automated exposure control, adjustment of t he mA and/or kV according to patient size, and/or use of iterative reconstruction technique. COMPARISON: No relevant prior studies available. FINDINGS: LUNG BASES: Unremarkable. No mass. No consolidation. ABDOMEN: LIVER: The liver is fatty. GALLBLADDER AND BILE DUCTS: The gallbladder is distended. Mild pericholecystic inflammation/fluid is present. No calcified gallstones are seen. There is no ductal dilatation. PANCREAS: Mild fatty infiltration of the pancreas is present. SPLEEN: Unremarkable. ADRENALS: Unremarkable. No mass. KIDNEYS AND URETERS: Unremarkable. The kidneys enhance symmetrically. No obstructing renal or ure teral calculus is seen. No hydronephrosis or hydroureter. No perinephric fluid or stranding. STOMACH AND BOWEL: Oral contrast is present within the stomach. Oral contrast is noted within th e distal small bowel. Stool is noted throughout colon. A few scattered colonic diverticula are presen t without surrounding inflammation. There is no bowel obstruction. PELVIS: APPENDIX: No findings to suggest acute appendicitis. BLADDER: Unremarkable. No mass. REPRODUCTIVE: The patient is status post hysterectomy. ABDOMEN and PELVIS: INTRAPERITONEAL SPACE: Unremarkable. No free air. No significant fluid collection. BONES/JOINTS: No acute fracture. SOFT TISSUES: The soft tissues are normal. VASCULATURE: Unremarkable. No abdominal aortic aneurysm. LYMPH NODES: Unremarkable. No enlarged lymph nodes. IMPRESSION: Mildly distended gallbladder with pericholecystic inflammation/fluid. Findings may be se condary to acute cholecystitis. If there is clinical concern for acute gallbladder pathology, finding s could be further evaluated with ultrasound or HIDA scan. Electronically signed by: Heide Mathews MD 09/17/2019 2:35 AM CDT Due to temporary technical issues with the PACS/Fluency reporting system, reports are being signed by the in house radiologist as a courtesy to ensure prompt reporting. The interpreting radiologist is f sterlingly responsible for the content of the report.
[2019-09-17] MEDS ORDERED: DIPHENHYDRAMINE 50 MG/ML VIAL IV PRN (20:38)
[2019-09-18] MEDS: MORPHINE 4 MG/ML SYR IV PRN ×4 (00:36→17:28)
[2019-09-18] MEDS: PIPER/TAZO/NS 3.375gm 3.375 GM/100 ML BAG IVPB SCH ×3 (00:37→16:19)
[2019-09-18] MEDS: ONDANSETRON 4 MG/2 ML VIAL IV PRN (00:46)
[2019-09-18] MEDS: HYDROCODONE/APAP 7.5/325 MG TAB PO PRN ×2 (04:59→20:31)
[2019-09-18] MEDS: FAMOTIDINE 20 MG/2 ML VIAL IV SCH ×2 (09:35→20:31)
[2019-09-18] MEDS: NA CHLORIDE 0.9% 1,000 ML IV SCH ×3 (09:43→16:20)
[2019-09-18] MEDS: ACETAMINOPHEN 325 MG TABLET PO PRN ×2 (11:30→23:51)
--- NOTE | 2019-09-18 16:09 | P.CNS ---
Date of Consult: 09/18/19 Reason for consultation : Bradycardia History of present illness 53-year-old female with past medical history of depression and hypertension presented to emergency room with severe right upper quadrant abdominal pain for evaluation treatment And the workup was consistent with acute on chronic cholecystitis with cholelithiasis and surgery was consulted. She underwent a laparoscopic cholecystectomy. And has been doing well, found to have bradycardia with a rate of 40s and was consulted for further management. Patient denies any chest pain or shortness of breath No fever or chills Complains of abdominal discomfort No previous history of CAD Past medical history Depression, hypertension Past surgical history Hysterectomy, knee surgery Family history Family history of CAD in dad' Family history of hypertension Social history: No previous history of smoking or alcohol Allergies No known allergies Review of systems All the 14 point review of systems negative except for those mentioned HPI Physical examination General examination : Alert awake no acute distress, HEENT : Normocephalic atraumatic , Eyes: Eyes normal inspection. ENT: Dry mucous membranes present. Neck: Normal inspection. Neck supple. CVS: Normal heart rate and rhythm. Heart sounds normal. Respiratory: No respiratory distress. Breath sounds normal. Abdomen: Soft and tender. Back: Normal inspection. Skin: Skin warm. Normal skin color. No rash. Extremities: No lower extremity edema. Neuro: Oriented X 3. No motor deficit. No generalized lymphadenopathy Psych: Anxious Assessment plan Acute on chronic cholecystitis with cholelithiasis Elevated LFTs Hypertension Bradycardia Depression Plan Monitor under telemetry Will get an x-ray chest and staffing director LFTs Pain control appreciate help from surgery Will get a TSH level and electrolytes Replace electrolytes if needed Get a rule out [place] GI/DVT prophylaxis
[2019-09-18 16:19] LABS: Absolute Lymphocytes (CBC) 1.5 K/uL (0.7-4.9); Basophils % 0.5 % (0-1.3); Hematocrit 35.4 % (36.0-45.0); Lymphocytes % 12.2 % (15.3-44.8); MPV 8.9 fL (7.6-11.3); RBC Red Blood Cell Count 3.89 M/uL (3.86-4.86)
[2019-09-18] MEDS ORDERED: MORPHINE 2 MG/ML SYR IV PRN (16:26)
[2019-09-18 16:40] LABS: CKMB Creatine Kinase MB 1.2 ng/mL (0.3-3.6); Magnesium 2.3 mg/dL (1.8-2.4)
[2019-09-18 16:47] LABS: AST/SGOT 220 U/L (15-37); Albumin 3.2 g/dL (3.4-5.0); Alkaline Phosphatase 195 U/L (45-117); BUN Blood Urea Nitrogen 7 mg/dL (7-18); Bicarbonate 24 mmol/L (21-32); Bilirubin Total 4.9 mg/dL (0.2-1.0); Glucose Level 116 mg/dL (74-106); HDL Cholesterol 40 mg/dL (40-60); LDL Cholesterol, Calculated 168 (<130); Potassium 3.6 mmol/L (3.5-5.1); Protein, Total 7.8 g/dL (6.4-8.2); Sodium Level 140 mmol/L (136-145); Troponin I < 0.02 ng/mL (0.0-0.045)
[2019-09-18 16:48] LABS: ALT/SGPT 339 U/L (12-78); Thyroid Stimulating Hormone 4.52 uIU/mL (0.360-3.740)
--- NOTE | 2019-09-18 17:07 | P.PN ---
Date of Service: 09/18/19 S: Patient fairly miserable today. Complaining of abdominal wall pain. Apparently was bradycardic, in her pain medicine was held. O: Awake alert uncomfortable at the moment, vital signs are stable. EKG has been done negative. She is not hypotensive. Incisions are clean. A: Patient is surgically stable but pain is not well controlled. Appears to come from the abdominal wall. No evidence of any hematoma but probably muscular. P: She has been seen by the hospitalist. We will upper pain medicine to get her some relief. I will also add and Valium 5 mg. We will recheck her labs in H&H. I suspect she will be stable for discharge in the a.m..
[2019-09-18] MEDS ORDERED: DIAZEPAM 5 MG TABLET PO ONE (20:00)
[2019-09-19] MEDS: NA CHLORIDE 0.9% 1,000 ML IV SCH ×3 (00:01→11:43)
[2019-09-19] MEDS: PIPER/TAZO/NS 3.375gm 3.375 GM/100 ML BAG IVPB SCH ×2 (00:01→08:25)
[2019-09-19 04:12] LABS: Basophils % 0.8 % (0-1.3); Hematocrit 30.7 % (36.0-45.0); Lymphocytes % 17.5 % (15.3-44.8); MPV 8.7 fL (7.6-11.3); RBC Red Blood Cell Count 3.38 M/uL (3.86-4.86)
[2019-09-19 04:28] LABS: Albumin 2.6 g/dL (3.4-5.0); Bilirubin Direct 1.9 mg/dL (0-0.2); Potassium 3.4 mmol/L (3.5-5.1); Protein, Total 6.4 g/dL (6.4-8.2)
[2019-09-19] MEDS: HYDROCODONE/APAP 7.5/325 MG TAB PO PRN ×2 (05:17→12:14)
[2019-09-19] MEDS: ACETAMINOPHEN 325 MG TABLET PO PRN (08:18)
[2019-09-19] MEDS: FAMOTIDINE 20 MG/2 ML VIAL IV SCH (08:18)
[2019-09-19 12:21] VITALS: BP 128/62; TEMP 98.1
--- NOTE | 2019-09-19 12:46 | P.PN ---
Subjective Date of Service: 09/19/19 Chief Complaint: Status post lap lizzy Subjective: No new changes, Improving Feeling better Review of Systems 10-point ROS is otherwise unremarkable Physical Examination - Vital Signs Temperature: 98.1 F Blood Pressure: 128/62 Pulse: 59 Respirations: 18 Pulse Ox (%): 94 - Physical Exam General: Alert, In no apparent distress HEENT: Atraumatic, Normocephalic Neck: Supple, 2+ carotid pulse no bruit Respiratory: Clear to auscultation bilaterally, Normal air movement Cardiovascular: Normal pulses, Regular rate/rhythm Capillary refill: <2 Seconds Gastrointestinal: Soft and benign, Tenderness Musculoskeletal: No clubbing, No swelling Integumentary: No rashes, No breakdown Neurological: Normal speech, Normal strength at 5/5 x4 extr Lymphatics: No axilla or inguinal lymphadenopathy Rectal: Deferred - Studies Laboratory Last Values WBC 17.8 K/uL (4.3-10.9) H 09/16/19 23:40 RBC 4.53 M/uL (3.86-4.86) 09/16/19 23:40 Hgb 13.7 g/dL (12.0-15.0) 09/16/19 23:40 Hct 40.6 % (36.0-45.0) 09/16/19 23:40 MCV 89.6 fL (80-100) 09/16/19 23:40 MCH 30.2 pg (27.0-35.0) 09/16/19 23:40 MCHC 33.8 g/dL (32.0-36.0) 09/16/19 23:40 RDW 12.8 % (12.1-15.2) 09/16/19 23:40 Plt Count 279 K/uL (152-406) 09/16/19 23:40 MPV 8.8 fL (7.6-11.3) 09/16/19 23:40 Neutrophils % 83.5 % (41.7-73.7) H 09/16/19 23:40 Lymphocytes % 7.1 % (15.3-44.8) L 09/16/19 23:40 Monocytes % 9.0 % (3.3-12.3) 09/16/19 23:40 Eosinophils % 0.0 % (0-4.4) 09/16/19 23:40 Basophils % 0.4 % (0-1.3) 09/16/19 23:40 Absolute Neutrophils 14.9 K/uL (1.8-8.0) H 09/16/19 23:40 Absolute Lymphocytes 1.3 K/uL (0.7-4.9) 09/16/19 23:40 Absolute Monocytes 1.6 K/uL (0.1-1.3) H 09/16/19 23:40 Absolute Eosinophils 0.0 K/uL (0-0.5) 09/16/19 23:40 Absolute Basophils 0.1 K/uL (0-0.5) 09/16/19 23:40 Sodium 139 mmol/L (136-145) 09/16/19 23:40 Potassium 3.8 mmol/L (3.5-5.1) 09/16/19 23:40 Chloride 105 mmol/L (98-107) 09/16/19 23:40 Carbon Dioxide 25 mmol/L (21-32) 09/16/19 23:40 BUN 7 mg/dL (7-18) 09/16/19 23:40 Creatinine 0.85 mg/dL (0.55-1.3) 09/16/19 23:40 Estimated GFR 71 mL/min (=/>90) L 09/16/19 23:40 Glucose 125 mg/dL (74-106) H 09/16/19 23:40 Calcium 9.1 mg/dL (8.5-10.1) 09/16/19 23:40 Total Bilirubin 4.1 mg/dL (0.2-1.0) H 09/16/19 23:40 Direct Bilirubin 2.1 mg/dL (0-0.2) H 09/16/19 23:40 AST 772 U/L (15-37) H* 09/16/19 23:40 ALT 573 U/L (12-78) H* 09/16/19 23:40 Alkaline Phosphatase 232 U/L (45-117) H 09/16/19 23:40 Serum Total Protein 8.4 g/dL (6.4-8.2) H 09/16/19 23:40 Albumin 3.8 g/dL (3.4-5.0) 09/16/19 23:40 Globulin 4.6 g/dL (2.3-3.5) H 09/16/19 23:40 Albumin/Globulin Ratio 0.8 (1.1-1.8) L 09/16/19 23:40 Lipase 140 U/L (73-393) 09/16/19 23:40 Urine pH 8.0 (5.0-7.0) H 09/17/19 01:18 Ur Specific [place] 1.015 (1.005-1.030) 09/17/19 01:18 Glucose (UA)(Auto) Negative (NEG) 09/17/19 01:18 Urine Ketones Negative (NEG) 09/17/19 01:18 Urine Blood Trace (NEG) H 09/17/19 01:18 Urine Nitrite Negative (NEG) 09/17/19 01:18 Ur Leukocyte Esterase Negative (NEG) 09/17/19 01:18 Urine Total Protein Trace (NEG) 09/17/19 01:18 Urine Test Neg (NEG) 09/17/19 01:18 Assessment & Plan - Problems (Diagnosis) (1) Bradycardia Current Visit: Yes Status: Acute Discharge Plan: Home Physician Review Additional Text: Acute on chronic cholecystitis with cholelithiasis Status post lap lizzy Elevated LFTs Hypertension Bradycardia Depression Plan LFTs trending down Heart rate is stable Pain controlled well No further episodes of bradycardia Advice ambulation Possible Dc if cleared by surgery GI/DVT prophylaxis Time Spent Managing Pts Care (In Minutes): 32
--- NOTE | 2019-09-19 12:53 | P.DS ---
Admission Date: 09/17/19 Discharge Date: 09/19/19 Disposition: ROUTINE DISCHARGE Discharge Condition: GOOD Reason for Admission: Status post lap lizzy - Problems (1) Bradycardia Status: Acute Brief History of Present Illness: 53-year-old female with past medical history of depression and hypertension presented to emergency room with severe right upper quadrant abdominal pain for evaluation treatment And the workup was consistent with acute on chronic cholecystitis with cholelithiasis and surgery was consulted. She underwent a laparoscopic cholecystectomy. And has been doing well, found to have bradycardia with a rate of 40s and was consulted for further management. Patient denies any chest pain or shortness of breath No fever or chills Complains of abdominal discomfort No previous history of CAD Hospital Course: Acute on chronic cholecystitis with cholelithiasis Status post lap lizzy Elevated LFTs Hypertension Bradycardia Depression Plan LFTs trending down Heart rate is stable Pain controlled well No further episodes of bradycardia Advice ambulation Possible Dc if cleared by surgery Vital Signs/Physical Exam: Temp Pulse Resp BP Pulse Ox 98.1 F 59 18 128/62 94 09/19/19 12:52 09/19/19 12:52 09/19/19 12:52 09/19/19 12:52 09/19/19 12:52 General: Alert, In no apparent distress HEENT: Atraumatic, Normocephalic Neck: Supple Respiratory: Clear to auscultation bilaterally, Normal air movement Cardiovascular: Normal pulses, Regular rate/rhythm Capillary refill: <2 Seconds Gastrointestinal: Soft and benign, W/out hepatosplenomegaly Musculoskeletal: No clubbing, No swelling Integumentary: No rashes Neurological: Normal speech, Normal strength at 5/5 x4 extr Laboratory Data at Discharge: WBC 11.2 K/uL (4.3-10.9) H 09/19/19 03:56 Hgb 10.4 g/dL (12.0-15.0) L 09/19/19 03:56 Hct 30.7 % (36.0-45.0) L 09/19/19 03:56 Plt Count 219 K/uL (152-406) 09/19/19 03:56 Sodium 142 mmol/L (136-145) 09/19/19 03:56 Potassium 3.4 mmol/L (3.5-5.1) L 09/19/19 03:56 BUN 7 mg/dL (7-18) 09/19/19 03:56 Creatinine 0.75 mg/dL (0.55-1.3) 09/19/19 03:56 Glucose 109 mg/dL (74-106) H 09/19/19 03:56 Phosphorus 1.0 mg/dL (2.5-4.9) L 09/18/19 16:06 Magnesium 2.3 mg/dL (1.8-2.4) 09/18/19 16:06 Total Bilirubin 3.0 mg/dL (0.2-1.0) H 09/19/19 03:56 AST 147 U/L (15-37) H 09/19/19 03:56 ALT 257 U/L (12-78) H 09/19/19 03:56 Alkaline Phosphatase 162 U/L (45-117) H 09/19/19 03:56 Troponin I < 0.02 ng/mL (0.0-0.045) 09/18/19 16:06 Triglycerides 221 mg/dL (<150) H 09/18/19 16:06 Cholesterol 252 mg/dL (<200) H 09/18/19 16:06 HDL Cholesterol 40 mg/dL (40-60) 09/18/19 16:06 Cholesterol/HDL Ratio 6.30 09/18/19 16:06 Lipase 220 U/L (73-393) 09/18/19 16:06 Home Medications: Estradiol [Estrace] 1 mg PO DAILY 09/17/19 Fremanezumab-Vfrm [Ajovy] 225 mg SQ SEECOM 09/17/19 Sertraline [Zoloft] 50 mg PO DAILY 09/17/19 Followup: Armani Moore MD [ACTIVE - CAN ADMIT] - 1 Week (Follow up on Wednesday. Call to make an appointment. )
[2019-09-19 13:35] VITALS: O2SAT 94
--- NOTE | 2019-09-20 06:13 | EKG ---
Test Date: 2019-09-18 Test Time: 15:52:50 Superintendent Pier: VICKI MEASUREMENT RESULTS: Intervals: Rate: 67 MN: 154 QRSD: 96 QT: 424 QTc: 448 [place]: P: 43 MN: 154 QRS: 30 T: 29 INTERPRETIVE STATEMENTS: Normal sinus rhythm Normal ECG No previous ECG available for comparison Electronically Signed On 09-20-19 06:11:19 CDT by Anthony Bernstein
== END 2019-09-19 13:49 | disposition home or self-care (01) | DRG 419 ==
LOC: ER 23:14 → ERHOLD 09-17 01:40 → 2ND 09-17 02:53
PROVIDERS: ADMIT Surgery; ATTEND Surgery
PROC: BF121ZZ Fluoroscopy of Gallbladder using Low Osmolar Contrast (ICD-10-PCS; 2019-09-17)
PROC: 0FT44ZZ Resection of Gallbladder, Percutaneous Endoscopic Approach (ICD-10-PCS; principal; 2019-09-17 12:00)
DX: K80.12 Calculus of gallbladder with acute and chronic cholecystitis without obstruction (principal); I10 Essential (primary) hypertension; R94.5 Abnormal results of liver function studies; R00.1 Bradycardia, unspecified; F32.9 Major depressive disorder, single episode, unspecified; Z90.710 Acquired absence of both cervix and uterus; Z20.828 Contact with and (suspected) exposure to other viral communicable diseases
CPT/HCPCS: 36415; 71045; 74177; 74300; 80048; 80053; 80061; 80076; 81003; 81025; 82248; 82550; 82553; 83690; 83735; 84100; 84439; 84443; 84484; 85025; 88304; 93005; 96374; 96375; 99285; J0360; J1100; J1170; J1200; J2405; J2543; J2550; J2704; J2710; J3010; J7030; J7040; J7120; Q9967; U0002

== ENCOUNTER 2023-10-08 08:38 | Day surgery (SDC) | payer BC, OTHER ==
[2023-10-06 15:37] LABS: Absolute Basophils 0.1 K/uL (0-0.5); Absolute Eosinophils 0.2 K/uL (0-0.5); Absolute Lymphocytes (CBC) 2.8 K/uL (0.7-4.9); Absolute Monocytes 0.8 K/uL (0.1-1.3); Absolute Neutrophil 3.8 K/uL (1.8-8.0); Basophils % 1.1 % (0-1.3); Eosinophils % 3.2 % (0-4.4); Hematocrit 41.3 % (36.0-45.0); Hemoglobin 14.1 g/dL (12.0-15.0); Lymphocytes % 35.9 % (15.3-44.8); MCH 31.4 pg (27.0-35.0); MCHC 34.2 g/dL (32.0-36.0); MCV 91.8 fL (80-100); MPV 7.7 fL (7.6-11.3); Neutrophils % 49.8 % (41.7-73.7); Platelets 316 thou/uL (152-406); RBC Red Blood Cell Count 4.49 M/uL (3.86-4.86)
[2023-10-06 15:58] LABS: Anion Gap 6.9 mEq/L (5.0-15.0); Potassium 3.9 mEq/L (3.5-5.1)
[2023-10-08] MEDS: Ringers Lactate 1,000 ML IV ONE (09:10)
[2023-10-08] MEDS ORDERED: LIDOCAINE 1% MPF 5 ML VIAL ONE (10:15)
[2023-10-08] MEDS ORDERED: propofoL 200 MG/20 ML VIAL IV ONE ×2 (10:15)
[2023-10-08 11:40] VITALS: TEMP 97; O2SAT 100
[2023-10-08 12:15] VITALS: BP 115/64
--- NOTE | 2023-10-11 15:11 | EKG ---
Test Date: 2023-10-06 Test Time: 15:24:29 Entertainment Reporter: SAVANNAH MEASUREMENT RESULTS: Intervals: Rate: 69 CO: 164 QRSD: 82 QT: 400 QTc: 428 [place]: P: 48 CO: 164 QRS: 35 T: 37 INTERPRETIVE STATEMENTS: Normal sinus rhythm Normal ECG Compared to ECG 09/18/2019 15:52:50 No significant changes Electronically Signed On 10-11-23 14:57:05 CDT by Mikael Valero
== END 2023-10-08 11:48 | disposition home or self-care (01) ==
LOC: OR 08:38
PROVIDERS: ATTEND Surgery
PROC: 0DBN8ZX Excision of Sigmoid Colon, Via Natural or Artificial Opening Endoscopic, Diagnostic (ICD-10-PCS; 2023-10-08)
PROC: 0DBH8ZX Excision of Cecum, Via Natural or Artificial Opening Endoscopic, Diagnostic (ICD-10-PCS; principal; 2023-10-08 10:00)
DX: R10.11 Right upper quadrant pain (principal); K57.30 Diverticulosis of large intestine without perforation or abscess without bleeding; K64.8 Other hemorrhoids; D12.0 Benign neoplasm of cecum
CPT/HCPCS: 93005; 85025; 80048; 36415; 88305; 45380; J2704 ×2; J2001; J7120